=== PATIENT | female | born 1985 | race Caucasian/White ===

== ENCOUNTER 2017-12-16 00:24 | Outpatient (CLI) | payer OTHER, SELFPAY ==
--- NOTE | 2017-12-16 15:32 | DI.US_ITS ---
Many abnormalities cannot be diagnosed. A normal exam does not exclude a congenital anomaly. Radiology No. LMP: Exam Date: 12/16/17 [facility] wks days on EDC ([facility]) 05/09/18 Confirmed: HISTORY: SURVEY, Z34.90 ---- PREDICTED GESTATIONAL AGE NUMBER 18.0 weeks with a range of 17.0 week to 19.0 weeks. 1 Determined by___1STUS___LMP_X__HISTORY Info. pertaining to fetus # PLACENTA PRESENTATION Grade I Cephalic___ Anterior___Posterior___ Breech____ Right Left Transverse(head right___ Fundal___Low-lying___Previa___ Transverse(head left___ Varying___X___ BIOMETRY AMNIOTIC FLUID BPD: 46 mm 19.5 weeks Normal HC: 171 mm 19.5 weeks AC: 1.36 mm 19.0 weeks FL: 30 mm 19.2 weeks AMNIOTIC FLUID INDEX >26 WK CRL: mm weeks Cisterna Magna: 4 mm CI: 76 RUQ: LUQ Cerebellum: 1.9 cm EFW: 279 grams Percentile RLQ: LLQ Total: cms Composite AGE= 19.3 wks EDC by US 05/09/18 BIOPHYSICAL PROFILE ANATOMY IDENTIFIED SCORE 0/2 Heart: 4-Chamber__X_Rate:BPM__145___ LVOT: X__ RVOT:___X Amniotic Fluid(>2cms)____ Stomach:___X____ Kidneys:____X___ Respirations (>30 secs) Bladder:____X____ Post. Fossa:___X Body Flex/Extension 3 vessel cord:____X___Ventricles: X cord insertion:____X_ Lips:___X_ Extremity Flex/Extension spinal morphology:__X Nose:X Total Score= Palate:___X____ NS=not seen OB ultrasound was performed utilizing second trimester protocol. biometry is consistent with a gestational age of 19 weeks 3 days and an EDC of . Placenta is anterior and there is no evidence of a placenta previa. There is a normal quantity of amniotic fluid. anomaly screen is within normal limits as per the attached worksheet.
[2017-12-16 18:53] LABS: Vitamin B12 172 pg/mL (193-986)
== END 2017-12-16 00:44 ==
PROVIDERS: Advanced Practice Midwife; PCP General Practice; Visit Provider Advanced Practice Midwife
DX: Z34.82 Encounter for supervision of other normal pregnancy, second trimester (principal); O99.280 Endocrine, nutritional and metabolic diseases complicating pregnancy, unspecified trimester
CPT/HCPCS: 36415; 76805; 82607; 84443

== ENCOUNTER 2017-12-18 05:43 | Outpatient (CLI) | payer OTHER, SELFPAY ==
--- NOTE | 2017-12-18 14:16 | DI.US_ITS ---
SYMPTOMS/DIAGNOSIS: F/U 12/16/17 US, VIEW PALATE OB ULTRASOUND: Many abnormalities cannot be diagnosed. A normal exam does not exclude a congenital anomaly. Radiology No. [id number] LMP: Exam Date: 12/18/17 [facility] wks days on EDC ([facility]) Confirmed: HISTORY: ---- PREDICTED GESTATIONAL AGE NUMBER 18+3 weeks with a range of 17+3 weeks to 19+3 weeks. 1 Determined by_X__1ST US___LMP___HISTORY PLACENTA PRESENTATION Grade Cephalic___ Anterior___Posterior___ Breech_X___ Right Left Transverse(head right___ Fundal___Low-lying___Previa___ Transverse(head left___ Varying BIOMETRY AMNIOTIC FLUID BPD: mm weeks Normal HC: mm weeks Oligo Polyhydramnios AC: mm weeks FL: mm weeks AMNIOTIC FLUID INDEX >26 WK CRL: mm weeks Cisterna Magna: mm CI: RUQ: LUQ Cerebellum: cm EFW: grams Percentile RLQ: LLQ Total: cms Composite AGE= wks EDC by US BIOPHYSICAL PROFILE ANATOMY IDENTIFIED SCORE 0/2 Heart: 4-Chamber___Rate:BPM LVOT: RVOT: Amniotic Fluid(>2cms)____ Stomach: Kidneys: Respirations (>30 secs) Bladder: Post. Fossa: Body Flex/Extension 3 vessel cord: Ventricles: cord insertion: Lips:__X__ Extremity Flex/Extension spinal morphology: Nose:__X___ Total Score= Palate:___X____ Face__X___ NS=not seen The follow-up examination today reveals no abnormality involving the lips, or nose or palate. The face appears normal.
== END 2017-12-18 06:03 ==
PROVIDERS: PCP General Practice; Visit Provider Advanced Practice Midwife
DX: Z34.92 Encounter for supervision of normal pregnancy, unspecified, second trimester (principal); Z36.2 Encounter for other antenatal screening follow-up
CPT/HCPCS: 76815

== ENCOUNTER 2018-02-23 14:08 | Outpatient (CLI) | payer OTHER, SELFPAY ==
[2018-02-23 15:06] LABS: Glucose,1 Hr (Glucola) 130 mg/dL (80-140)
== END 2018-02-23 14:28 ==
PROVIDERS: Obstetrics & Gynecology; PCP General Practice; Visit Provider Obstetrics & Gynecology Gynecology
DX: Z34.93 Encounter for supervision of normal pregnancy, unspecified, third trimester (principal)
CPT/HCPCS: 36415; 82950

== ENCOUNTER 2018-04-03 11:48 | Outpatient (CLI) | payer OTHER, SELFPAY ==
[2018-04-03 13:52] LABS: Vitamin B12 631 pg/mL (193-986)
== END 2018-04-03 12:08 ==
PROVIDERS: Advanced Practice Midwife; PCP General Practice; Visit Provider Obstetrics & Gynecology
DX: Z34.93 Encounter for supervision of normal pregnancy, unspecified, third trimester (principal)
CPT/HCPCS: 36415; 82607

== ENCOUNTER 2018-04-21 23:47 | Observation (INO) | payer OTHER, SELFPAY | END 2018-04-22 00:35 | disposition home or self-care (01) | LOC: OBS 23:55 | PROVIDERS: Admitting Provider Obstetrics & Gynecology; PCP General Practice; Visit Provider Obstetrics & Gynecology | DX: O60.03 Preterm labor without delivery, third trimester (principal); Z3A.36 36 weeks gestation of pregnancy | CPT/HCPCS: G0378 ==

== ENCOUNTER 2018-04-24 00:43 | Outpatient (CLI) | payer OTHER, SELFPAY ==
--- NOTE | 2018-04-24 09:30 | DI.US_ITS ---
SYMPTOMS/DIAGNOSIS: ESTIMATED WEIGHT, 34.90, SUPERVISION OF OBSTETRICAL ULTRASOUND: Many abnormalities cannot be diagnosed. A normal exam does not exclude a congenital anomaly. Radiology No. [id number] LMP: Exam Date: 04/24/18 [facility] wks days on EDC ([facility]) 05/09/18 Confirmed: HISTORY: PREDICTED GESTATIONAL AGE NUMBER 37+6 weeks with a range of 36+6 weeks to 38+6 weeks. 1 Determined by___1STUS___LMP___HISTORY PLACENTA PRESENTATION Grade I-II Cephalic_X__ Anterior_X__Posterior___ Breech____ Right Left___X____ Transverse(head right___ Fundal_X__Low-lying___Previa___ Transverse(head left___ Varying BIOMETRY AMNIOTIC FLUID BPD: 94 mm 38+2 weeks Normal HC: 348 mm 40+3 weeks AC: 345 mm 38+3 weeks FL: 75 mm 38+1 weeks AMNIOTIC FLUID INDEX >26 WK CRL: mm weeks Cisterna Magna: mm CI: 80.2 RUQ: LUQ Cerebellum: cm EFW: 3533 grams Percentile: 79th RLQ: LLQ Total: cms Composite AGE= 38+6 wks EDC by US: 05/02/18 BIOPHYSICAL PROFILE ANATOMY IDENTIFIED SCORE 0/2 Heart: 4-Chamber_X__Rate:BPM 139 LVOT: RVOT: Amniotic Fluid(>2cms)____ Stomach:___X____ Kidneys: Respirations (>30 secs) Bladder:____X____ Post. Fossa: Body Flex/Extension 3-vessel cord:__X Ventricles: Cord insertion: Lips:_X___ Extremity Flex/Extension Spinal morphology: Nose:__X__ Total Score= Palate: NS=not seen COMMENTS: Routine examination was performed. There is a single living intrauterine gestation. Estimated sonographic age is 38 weeks 6 days. The fetus is in the cephalic presentation. heart rate is 139 beats per minute. A complete anatomic evaluation was not performed at this time. The estimated weight is 3533 g, which is the 79th percentile. The amniotic fluid index is 11.9 cm. Visually, amniotic fluid appears within normal limits. The placenta is anterior without evidence of previa. IMPRESSION: Single living intrauterine gestation. Estimated sonographic age is 38 weeks 6 days.
== END 2018-04-24 01:03 ==
PROVIDERS: PCP General Practice; Visit Provider Obstetrics & Gynecology
DX: Z34.93 Encounter for supervision of normal pregnancy, unspecified, third trimester (principal); Z36.2 Encounter for other antenatal screening follow-up
CPT/HCPCS: 76816; 87081

== ENCOUNTER 2018-04-30 06:58 | Inpatient (IN) | payer OTHER, SELFPAY ==
--- NOTE | 2018-04-30 16:17 | HPE_ITS ---
Assessment and Plan (1) GDM (gestational diabetes mellitus), class A1: Current visit: Yes Status: Acute EFW 8.5 # discussed risk shoulder dystocia (2) : Current visit: No Status: Acute 32 37.2 active labor GBS negative GDM diet controlled EFW 8.5# Shoulder dystocia risks discussed with patient ok for epidural (3) Hypothyroid: Current visit: No Status: None patient on meds History of Present Illness Chief Complaint: 37.2 active labor Review of Systems Review of Systems All systems reviewed & are unremarkable except as noted in HPI and below PFSH Medical History GDM (gestational diabetes mellitus), class A1 (Acute) (Acute) Hypothyroid Complete miscarriage (Resolved) Surgical History History of D&C (Resolved) Family History Mother Thyroid disorder Father Myocardial infarction Grandfather Myocardial infarction Social History current occupation: PA in the ER at [employer] Smoking/Tobacco Use Status: Never Meds Home Medications Medication Instructions Recorded Confirmed Type PNV cmb#95-ferrous fumarate-FA 1 ea PO 05/22/17 04/24/18 History [ Vitamin Tablet] levothyroxine 125 mcg tablet 125 mcg PO DAILY #30 tab 12/18/17 04/24/18 Rx cyanocobalamin (vit B-12) 2,500 2,500 mcg SL DAILY 01/26/18 04/24/18 History mcg sublingual tablet lancets 28 gauge #25 each 04/10/18 04/24/18 Rx Allergies Allergy/AdvReac Type Severity Reaction Status Date / Time latex Allergy Intermediate Hives Unverified 04/30/18 15:49 Exam Narrative Exam Narrative: uncomfortable with contractions Resp Effort & Inspection: normal respiratory effort Auscultation: clear to auscultation bilaterally Cardio Rate: regular rate Rhythm: regular rhythm Heart Sounds: S1 normal, S2 normal and no murmurs OB/External & Speculum: external exam normal Manual OB Exam: dilated 6, effaced fully and station (vtx by US) high
[2018-04-30 16:37] LABS: HCT 37.2 % (36.0-46.0); HGB 12.6 g/dL (12.0-15.5); Mean Corp. HGB Concentration 33.9 g/dL (32.0-36.0); Mean Corpuscular Hemoglobin 30.3 pg (27.0-33.0); Mean Corpuscular Volume 89.4 fL (80-95); Mean Platelet Volume 10.8 fL (8.0-11.0); Platelet Count 157 x1000/uL (130-400); RBC 4.16 m/cumm (4.00-5.20); RBC Distribution Width 14.2 % (11.7-14.6); White Blood Cell Count 14.38 k/cumm (4.4-10.8)
[2018-04-30] MEDS: Lactated Ringers 200 ML 400 ML IV (17:15)
[2018-04-30] MEDS: Bacitracin 1 PACKET (19:07)
[2018-04-30] MEDS: Hamamelis Leaf/Glycerin 100 EACH BOX PR (21:18)
[2018-04-30] MEDS: Ibuprofen 600 MG TAB PO (21:18)
[2018-04-30] MEDS: Acetaminophen 325 MG TAB 650 MG PO (21:18)
[2018-04-30] MEDS: Lidocaine 1% Pres-Free 5 ML VIAL (21:36)
[2018-05-01] MEDS: Acetaminophen 325 MG TAB 650 MG PO ×3 (01:40→20:05)
[2018-05-01] MEDS: Ibuprofen 600 MG TAB PO ×3 (04:25→20:04)
[2018-05-01 07:30] LABS: HCT 33.7 % (36.0-46.0); HGB 11.1 g/dL (12.0-15.5); Mean Corp. HGB Concentration 32.9 g/dL (32.0-36.0); Mean Corpuscular Hemoglobin 29.9 pg (27.0-33.0); Mean Corpuscular Volume 90.8 fL (80-95); Platelet Count 154 x1000/uL (130-400); RBC 3.71 m/cumm (4.00-5.20); RBC Distribution Width 14.5 % (11.7-14.6); White Blood Cell Count 13.74 k/cumm (4.4-10.8)
[2018-05-01] MEDS: Normal Saline Flush 10 ML SYR IVP (08:26)
[2018-05-01] MEDS: Docusate Sodium 100 MG CAP PO ×2 (08:27→20:34)
[2018-05-01] MEDS: Hamamelis Leaf/Glycerin 100 EACH BOX PR (12:59)
[2018-05-02] MEDS: Levothyroxine 125 MCG TAB PO (05:57)
[2018-05-02] MEDS: Ibuprofen 600 MG TAB PO (08:02)
[2018-05-02] MEDS: Acetaminophen 325 MG TAB 650 MG PO (08:03)
== END 2018-05-02 12:45 | disposition home or self-care (01) | DRG 768 ==
PROVIDERS: Admitting Provider Obstetrics & Gynecology; PCP General Practice; Visit Provider Obstetrics & Gynecology
DX: O24.420 Gestational diabetes mellitus in childbirth, diet controlled (principal); Z37.0 Single live birth; O70.20 Third degree perineal laceration during delivery, unspecified; Z3A.37 37 weeks gestation of pregnancy; O99.284 Endocrine, nutritional and metabolic diseases complicating childbirth; E03.9 Hypothyroidism, unspecified; O76 Abnormality in fetal heart rate and rhythm complicating labor and delivery
CPT/HCPCS: 36415; 85027; 86850; 86900; 86901; NC; G0378; J3490

== ENCOUNTER 2018-05-15 09:29 | Outpatient (CLI) | payer OTHER, SELFPAY | END 2018-05-15 09:49 | PROVIDERS: PCP General Practice; Visit Provider Advanced Practice Midwife | DX: Z39.1 Encounter for care and examination of lactating mother (principal) | CPT/HCPCS: E0602 ==

== ENCOUNTER 2019-01-08 08:47 | Outpatient (CLI) | payer OTHER, SELFPAY ==
[2019-01-08 10:33] LABS: TSH (W/Ref FT4) 2.14 uIU/mL (0.36-3.74)
[2019-01-08 10:48] LABS: Calculated LDL 120 mg/dL; Cholesterol 192 mg/dL (50-200); HDL Cholesterol 57 mg/dL (40-60); Triglyceride 78 mg/dL (30-150); Vitamin B12 785 pg/mL (193-986)
[2019-01-08 11:41] LABS: GTT Comment See Comments
== END 2019-01-08 09:07 ==
PROVIDERS: Obstetrics & Gynecology; Obstetrics & Gynecology Gynecology; PCP Family Medicine; Visit Provider Family Medicine
DX: E03.9 Hypothyroidism, unspecified (principal); Z13.1 Encounter for screening for diabetes mellitus; E53.9 Vitamin B deficiency, unspecified; Z82.49 Family history of ischemic heart disease and other diseases of the circulatory system
CPT/HCPCS: 36415; 80061; 82607; 82951; 84443

== ENCOUNTER 2019-07-14 15:05 | Outpatient (CLI) | payer OTHER, SELFPAY ==
[2019-07-14 16:48] LABS: HCT 40.1 % (36.0-46.0); HGB 13.3 g/dL (12.0-15.5); Mean Corp. HGB Concentration 33.2 g/dL (32.0-36.0); Mean Corpuscular Hemoglobin 29.8 pg (27.0-33.0); Mean Corpuscular Volume 89.7 fL (80-95); Mean Platelet Volume 10.2 fL (8.0-11.0); Platelet Count 281 x1000/uL (130-400); RBC 4.47 m/cumm (4.00-5.20); RBC Distribution Width 12.4 % (11.7-14.6); White Blood Cell Count 7.94 k/cumm (4.4-10.8)
[2019-07-14 17:34] LABS: Anion Gap 11.7 mmol/L (3-11); BUN 10 mg/dL (7-18); CO2 24.3 mmol/L (21.0-32.0); Chloride 103 mmol/L (98-107); Glucose 107 mg/dL (74-106); Potassium 4.1 mmol/L (3.5-5.1); Sodium 139 mmol/L (136-145)
[2019-07-14 19:03] LABS: TSH (W/Ref FT4) 0.24 uIU/mL (0.36-3.74)
[2019-07-14 19:46] LABS: FREE T4 1.27 ng/dL (0.76-1.46)
== END 2019-07-14 15:25 ==
PROVIDERS: PCP Family Medicine; Visit Provider Nurse Practitioner Family
DX: R51 Headache (principal); E03.9 Hypothyroidism, unspecified
CPT/HCPCS: 80048; 85027; 84439; 84443

== ENCOUNTER 2019-07-21 00:50 | Outpatient (CLI) | payer OTHER, SELFPAY ==
--- NOTE | 2019-07-21 | DI.MRI_ITS ---
EXAM: MR BRAIN WO CLINICAL HISTORY: HEADACHES,R51. TECHNIQUE: Multiplanar multisequence MRI of the brain was performed. CONTRAST MATERIAL: Noncontrast COMPARISON: No exams were available for comparison FINDINGS: VENTRICLES AND EXTRA AXIAL SPACES: Normal in size and morphology for the patient's age. HEMORRHAGE: None. CEREBRAL PARENCHYMA: No focus of restricted diffusion to suggest acute infarct. No space-occupying le bhavna identified. Normal montoya-white matter differentiation. MIDLINE SHIFT: None. BRAINSTEM/CEREBELLUM: Normal. VISUALIZED PARANASAL SINUSES/MASTOIDS: Clear. OTHER FINDINGS: The vascular flow voids appear intact. The orbits are unremarkable. IMPRESSION: Unremarkable MRI of the brain. DATA REPOSITORY:
== END 2019-07-21 01:10 ==
PROVIDERS: PCP Family Medicine; Visit Provider Nurse Practitioner Family
DX: R51 Headache (principal)
CPT/HCPCS: 70551

== ENCOUNTER 2020-05-08 17:42 | Outpatient (REF) | payer OTHER, SELFPAY ==
--- NOTE | 2020-05-08 15:00 | PAPFT_PTH ---
PATIENT: Keturah Tucker LOC: [facility] U#:[id number] AGE/SX: 34/F ROOM: RE05/08/[address]: DOROTA Rg : 1985 BED: DIS: 05/08/2020 SPEC #: [id number] RECD: 05/08/20 17:54 STATUS: RADHA REQ #: [id number] JOYCE: 05/08/20 15:[address]: Tabitha Gauthier DEPT: [facility] Cytology RECD BY: Laura Woods ENTERED: 05/08/20 17:54 SP TYPE: PAPFT REAL DR: Radha Dowell Tissues: 1 - CX/ENDOCX FOR PAP SMEARS Procedures: PAP THIN PREP/UVM Screening HPV DNA PROBE Comments: [id number]
== END 2020-05-08 17:43 | disposition home or self-care (01) ==
LOC: LBN 17:42
PROVIDERS: PCP Family Medicine; Visit Provider Nurse Practitioner Family
DX: Z12.4 Encounter for screening for malignant neoplasm of cervix (principal); R87.612 Low grade squamous intraepithelial lesion on cytologic smear of cervix (LGSIL); Z11.51 Encounter for screening for human papillomavirus (HPV); R87.810 Cervical high risk human papillomavirus (HPV) DNA test positive
CPT/HCPCS: 88142; 87624

== ENCOUNTER 2020-07-03 15:03 | Outpatient (REF) | payer OTHER, SELFPAY ==
--- NOTE | 2020-07-03 14:50 | ENDO_PTH ---
PATIENT: Keturah Tucker LOC: [facility] U#:[id number] AGE/SX: 34/F ROOM: RE07/03/[address]: Heather Gleason DO : 1985 BED: DIS: 07/03/2020 SPEC #: [id number] RECD: 07/03/20 17:16 STATUS: RADHA RE #: [id number] JOYCE: 07/03/20 14:[address]: Heather Gleason DEPT: Surgical Specimen RECD BY: Laura Woods ENTERED: 07/03/20 17:16 SP TYPE: Endo OTHR DR: Radha Dowell Tissues: 1 - ENDOCERVICAL BX/CURRETTE Procedures: GROSS AND MICRO LEVEL 4 Comments: [id number]
== END 2020-07-03 15:04 | disposition home or self-care (01) ==
LOC: LBN 15:03
PROVIDERS: PCP Family Medicine; Visit Provider Obstetrics & Gynecology
DX: N88.8 Other specified noninflammatory disorders of cervix uteri (principal); R87.612 Low grade squamous intraepithelial lesion on cytologic smear of cervix (LGSIL)
CPT/HCPCS: 88305

== ENCOUNTER 2020-07-08 09:59 | Emergency (ER) | payer OTHER, SELFPAY ==
[2020-07-08 10:03] VITALS: BP 139/69; PULSE 85; TEMP 36.5; O2SAT 100
--- NOTE | 2020-07-08 10:15 | DI.RAD_ITS ---
EXAM: XR CHEST 2V PA LATERAL CLINICAL HISTORY: fall from ladder TECHNIQUE: 2D digital imaging was performed. COMPARISON: No exams were available for comparison FINDINGS: MEDIASTINUM: Normal. HEART: Normal. PULMONARY VASCULATURE: Normal. LUNGS: Clear. PLEURAL SPACE: No pleural effusion or pneumothorax. BONE:Within normal limits for the patient's age. OTHER FINDINGS:Normal. IMPRESSION: No acute pulmonary findings. DATA REPOSITORY: RADIATION DOSE DELIVERED:
--- NOTE | 2020-07-08 10:15 | DI.RAD_ITS ---
EXAM: CT LOWER EXTREMITY RT WO and XR knee RT four view CLINICAL HISTORY: open patellar fx. TECHNIQUE: Imaging Protocol: Axial computed tomography images with coronal and sagittal reformatted images were created and reviewed. COMPARISON: No previous for comparison. FINDINGS: X-ray right knee: There is fragmentation of the inferior pole of the right patella suspicious for an acute fracture. T here is associated soft tissue swelling and thickening of the patellar ligament.There may be a tiny j oint effusion.The bones are otherwise well maintained. The soft tissues are otherwise unremarkable. CT scan of the right knee: Bones: There is fragmentation of the inferior pole of the patella. There does appear to be associate d thickening of the patellar ligament and swelling of the prepatellar soft tissues. A comminuted acu te fracture of the inferior patella should be considered. Bony alignment is satisfactory. There is a small joint effusion. Soft Tissues: There is a laceration of the lateral soft tissues superficial to the lateral retinacul um. Subcutaneous air is seen in the soft tissues. IMPRESSION: 1. Fragmentation seen in the inferior patella. With the associated soft tissue swelling in the regio n, an acute fracture should be considered. Please correlate with the patient's site of pain. An MRI should be considered for further evaluation. 2. Soft tissue swelling, subcutaneous gas and laceration over the anterolateral knee. RADIATION DOSE DELIVERED: 173.57mGy.cm Total DLP 173.57mGy.cm Total DLP DATA REPOSITORY: All CT scans at this facility are submitted to the National Radiology Data Registry (NRDR) Dose Index Registry (DIR) with the [employer] ([employer]). RADIATION OPTIMIZATION: All CT scans at this facility use at least one of these dose optimization te chniques: automated exposure control; mA and/or kV adjustment per patient size (includes targeted exa ms where dose is matched to clinical indication); or iterative reconstruction.
--- NOTE | 2020-07-08 10:33 | ED.GENADUL_ITS ---
Discharge Plan Disposition Patient Disposition: HOME Condition: Stable Discharge Details Clinical Impression: Knee laceration, Patellar fracture Primary Care Provider: Radha Dowell ED Provider: Maximus Aburto Home Meds and New Rx's Prescriptions: New cephalexin 500 mg capsule 500 mg PO QID 2 Days Qty: 8 RF: 0 Continued levothyroxine 125 mcg tablet 112 mcg PO DAILY RF: 0 ibuprofen 800 mg tablet 800 mg PO TID PRN (Reason: pain) Qty: 30 RF: 2 naproxen sodium [Aleve] 220 mg Tablet 440 mg PO BID PRNRF: 0 acetaminophen 500 mg Capsule 1,000 mg PO Q6H PRNRF: 0 Discharge Instructions Instructions: Laceration (ED), Patellar Fracture (ED), Knee Immobilizer (ED) Additional Instructions: Keflex as directed. [id number] Tylenol and/or Motrin as directed for discomfort. Rest, elevate, cool compresses every 2 hours for 20 minutes. Keep the wound clean and dry, change antibiotic dressing daily. Wear long leg immobilizer, weight-bear as tolerated. Please watch for new or worsening sympt oms and return to the ER for any concerns. Sutures should come out in approximately 14 days given it is over an area of high tension. You may return to the ER or follow-up with your primary care provider for this. I have also given you the name and number of Dr. Gleason, orthopedics, please contact his office on Friday to set up outpatient follow-up appointment. Referrals: Lucio Gleason MD [ [facility] STAFF PHYSICIAN] - Discharge Data Discharge Date/Time-TO BE ENTERED AT DEPARTURE: 07/08/20 13:40 Medical Decision Making <PRIYA Billings - Last Filed: 07/09/20 15:17> This is a 34-year-old female, past medical history of hypothyroidism, presented to the ER status post 15 foot fall from ladder sustaining a right knee injury. Patient denies striking her head, LOC, headache or neck pain. Tetanus status is up-to-date. Given the mechanism of injury, obvious distracting injury of the right lower extremity, I have recommended obtaining IV access, CT imaging of he ad, C-spine, abdomen, chest, pelvis, laboratory values, and an x-ray of the right lower extremity. Patient initially declined any CT imaging for IV access. She does understand the risks of not obtaining these images such as intracranial hemorrhage, cervical spine fracture, pneumothorax, pulmonary contusion, intra-abdominal injury and/or hemorrhage. Patient understands that this may result in worsening of her situation or . Patient does not want any pain medication at this time. She is agreeable to a chest x-ray, right knee x-ray and reassessment. Dr. Samuel did perform an E FAST, please see his note. Right knee x-ray read by me as soft tissue injury, inferior patella fracture. G iven the complexity of the laceration, and concerned about the possibility of an open fracture versus infiltration into the joint space. Given this I will give 2 g IV Ancef, she is agreeable to IV access and now laboratory values. I have placed a call to Dr. Gleason and in the meantime and ordering a CT of her right knee. Chest x-ray read by me and reviewed by radiology as negative. Right knee CT irregularity of the inferior patella that appears chronic, no acute fracture, as read by radiology. Given the point tenderness over the inferior patella, I do believe this is likely acute. No indication that there is intraarticular association to the laceration. Dr. Gleason evaluated the patient personally, please see his note. He does not believe that this is an open fracture. Recommends 2-day oral Keflex prescription. CT discussed with Dr. Gleason as well. He agrees that he belie ves there is a acute patella fracture. Recommend long leg immobilizer and weight-bear as tolerated. Recommend loose approximation of the laceration. He will be happy to follow the patient as an outpatient in his office. Laboratory values do not reveal any obvious emergent process. ER course, work-up, consultations and disposition all discussed with patient. Tolerated laceration repair without difficulty. She is ambulatory using a long- leg immobilizer. Declines prescription for any pain medications. She is agreeable to take Keflex for the next 2 days. Patient given standard discharge and return precautions. Patient has no additional questions or concerns and is comfortable with this plan. Medical Records Medical records reviewed: Yes I reviewed the patient's medical records. Imaging Data Radiologic Study: Attestation: I personally reviewed and interpreted this imaging study as follows: Imaging: X-Ray Radiologist's impression: Chest x-ray negative per radiology Radiologic Study #2: Attestation: I personally reviewed and interpreted this imaging study as follows: Imaging: X-Ray Radiologist's impression: Right knee possible fracture anterior patella. Consider CT scan of the knee Radiologic Study #3: Attestation: I personally reviewed and interpreted this imaging study as follows: Imaging: CT Scan Radiologist's impression: Right knee CT irregularity of the inferior patella that appears chronic, no acute fracture. Anterior prepatellar soft tissue swelling and laceration. Lab Data Lab results reviewed: Yes I reviewed the patient's lab results. Labs: Laboratory Tests Range/Units 07/08/20 07/08/20 07/08/20 11:12 11:55 11:55 WBC (4.4-10.8) 10^3/uL 9.66 RBC (3.93-5.22) 10^6/uL 4.65 Hgb (11.2-15.7) g/dL 11.9 Hct (36.0-46.0) % 38.5 MCV (80-95) fL 82.8 MCH (27.0-33.0) pg 25.6 L MCHC (32.0-36.0) % 30.9 L RDW (11.7-14.6) % 13.7 Plt Count (130-400) 10^3/uL 257 MPV (8.0-11.0) fL 10.2 Immature Gran % 0.2 Neutrophils % 77.2 Lymphocytes % 15.3 Monocytes % 6.6 Eosinophils % 0.3 Basophils % 0.4 Nucleated RBC % % 0 Absolute Neutrophils (1.2-6.7) 10^3/uL 7.45 H Absolute Lymphocytes (1.2-3.4) 10^3/uL 1.48 Absolute Monocytes (0.1-0.8) 10^3/uL 0.64 Absolute Eosinophils (0.0-0.7) 10^3/uL 0.03 Absolute Basophils (0.0-0.2) 10^3/uL 0.04 Sodium (136-145) mmol/L 137 Potassium (3.5-5.1) mmol/L 3.7 Chloride (98-107) mmol/L 102 Carbon Dioxide (21.0-32.0) mmol/L 23.5 Anion Gap (3-11) mmol/L 11.5 H BUN (7-18) mg/dL 10 Creatinine (0.55-1.02) mg/dL 0.9 Estimated GFR/1.73 m2 (mL/min/1.73m2) >= 60.00 Glucose (74-106) mg/dL 93 Calcium (8.5-10.1) mg/dL 9.1 Total Bilirubin (0.2-1.0) mg/dL 0.3 AST (15-37) U/L 27 ALT (14-59) U/L 28 Alkaline Phosphatase (46-116) U/L 53 Total Protein (6.4-8.2) g/dL 8.2 Albumin (3.4-5.0) g/dL 4.5 Lipase (73-393) U/L 187 TSH (0.36-3.74) uIU/mL Urine Color Cancelled Urine Clarity Cancelled Urine pH Cancelled Ur Specific [place] Cancelled Urine Protein Cancelled Urine Ketones Cancelled Urine Blood Cancelled Urine Nitrite Cancelled Urine Bilirubin Cancelled Urine Urobilinogen Cancelled Ur Leukocyte Esterase Cancelled Urine Glucose Cancelled COVID-19 Source SARS-CoV-2 (PCR) (Negative) Range/Units 07/08/20 07/08/20 11:55 12:15 WBC (4.4-10.8) 10^3/uL RBC (3.93-5.22) 10^6/uL Hgb (11.2-15.7) g/dL Hct (36.0-46.0) % MCV (80-95) fL MCH (27.0-33.0) pg MCHC (32.0-36.0) % RDW (11.7-14.6) % Plt Count (130-400) 10^3/uL MPV (8.0-11.0) fL Immature Gran % Neutrophils % Lymphocytes % Monocytes % Eosinophils % Basophils % Nucleated RBC % % Absolute Neutrophils (1.2-6.7) 10^3/uL Absolute Lymphocytes (1.2-3.4) 10^3/uL Absolute Monocytes (0.1-0.8) 10^3/uL Absolute Eosinophils (0.0-0.7) 10^3/uL Absolute Basophils (0.0-0.2) 10^3/uL Sodium (136-145) mmol/L Potassium (3.5-5.1) mmol/L Chloride (98-107) mmol/L Carbon Dioxide (21.0-32.0) mmol/L Anion Gap (3-11) mmol/L BUN (7-18) mg/dL Creatinine (0.55-1.02) mg/dL Estimated GFR/1.73 m2 (mL/min/1.73m2) Glucose (74-106) mg/dL Calcium (8.5-10.1) mg/dL Total Bilirubin (0.2-1.0) mg/dL AST (15-37) U/L ALT (14-59) U/L Alkaline Phosphatase (46-116) U/L Total Protein (6.4-8.2) g/dL Albumin (3.4-5.0) g/dL Lipase (73-393) U/L TSH (0.36-3.74) uIU/mL 2.16 Urine Color Urine Clarity Urine pH Ur Specific [place] Urine Protein Urine Ketones Urine Blood Urine Nitrite Urine Bilirubin Urine Urobilinogen Ur Leukocyte Esterase Urine Glucose COVID-19 Source Nasal/nares SARS-CoV-2 (PCR) (Negative) Negative HPI <PRIYA Billings - Last Filed: 07/09/20 15:17> General Mode of arrival: ambulatory . Date/Time Provider Initiated Documentation: 07/08/20 10:07 . Limitations to Documentation: no limitations . Information obtained by: patient . HPI Narrative: This is a 34-year-old female, past medical history of hypothyroidism, presenting to the ER for evaluation of a right lower leg injury. Patient was cleaning windows on a ladder, approximately 15 feet off the ground, when the ladder slipped from underneath her, she fell down to the ground landing upright on the ladder, the ladder rung broke and punctured her right knee. She reports that her tetanus status is up-to-date. She denies striking her head, headache, or neck pain. Patient reports multiple abrasions and contusions to her upper and lower extremities. She does report that she has right sided chest wall pain but denies any substernal chest pain, shortness of breath, abdominal pain, nausea, vomiting, incontinence, numbness, tingling, weakness. She reports that the pain in her right knee is moderate, she is able to bear weight but the pain does get worse with movement or bearing weight. Related Data Home Medications Medication Instructions Recorded Confirmed ibuprofen 800 mg tablet 800 mg PO TID PRN #30 tab 05/02/18 07/08/20 levothyroxine 125 mcg tablet 112 mcg PO DAILY tab 05/08/20 07/08/20 acetaminophen 1,000 mg PO Q6H PRN 07/08/20 07/08/20 cephalexin 500 mg PO QID 2 Days #8 cap 07/08/20 naproxen sodium [Aleve] 440 mg PO BID PRN 07/08/20 07/08/20 Previous Rx's Medication Instructions Recorded ibuprofen 800 mg tablet 800 mg PO TID PRN #30 tab 05/02/18 cephalexin 500 mg PO QID 2 Days #8 cap 07/08/20 Allergies Allergy/AdvReac Type Severity Reaction Status Date / Time latex Allergy Intermediate Hives Verified 07/08/20 10:07 General Stated Complaint: Trauma ANDREW: 3 Review of Systems <PRIYA Billings - Last Filed: 07/09/20 15:17> Constitutional Constitutional: Denies headache(s) Eyes Eyes: Denies change in vision ENT Ears, Nose, Mouth, and Throat: Denies headache(s) and Denies neck pain Cardiovascular Cardiovascular: Denies chest pain and Denies dyspnea Respiratory Respiratory: Denies dyspnea Gastrointestinal Gastrointestinal: Denies abdominal pain, Denies nausea and Denies vomiting Musculoskeletal Musculoskeletal: Denies back pain, Denies neck pain, Denies numbness, Reports stiffness and Denies tingling Neurologic Neurologic: Denies headache(s), Denies numbness and Denies tingling PFSH <PRIYA Billings - Last Filed: 07/09/20 15:17> Medical History Complete miscarriage GDM (gestational diabetes mellitus), class A1 Hypothyroid Hypothyroid LGSIL on Pap smear of cervix Positive high risk HPV Yeast dermatitis Surgical History History of D&C 05/2017 for incomplete Family History Mother Thyroid disorder Father Myocardial infarction Grandfather Myocardial infarction Social History Smoking/Tobacco Use Status: Never Smoking risk assessment performed?: Yes Household members: spouse, children and other Details: Shannon Noguera Number of Children: 2 current occupation: PA in the ER at [employer] Do you feel safe at home: Yes Do you feel safe in your relationship?: Yes Additional Social history: Kwadwo Noguera, 2019 Jose Maria, History History 3 Para Hx # Term Pregnancies 1 Multiple births Hx # Pregnancies Ectopic pregnancies AB induced Hx Number of Living Children AB spontaneous Past Pregnancies Del. Date GA/Weeks # Outcome Route Wgt Sex Labor Lgth Anesthes ia Location Prov Complic Unknown 04/30/18 37 No Successful vaginal 3657.088 g Male 17hrs 10 min lisette onal Claire dian Delivery Date: son: Jose Maria. Rosa Maria Vargas Delivery Date: 04/30/18 No notes to display Exam <PRIYA Billings - Last Filed: 07/09/20 15:17> Const General: cooperative, healthy appearing, comfortable and no acute distress Orientation: alert, awake and oriented x3 HENMT Head: normal to inspection, normocephalic and atraumatic Ears: external ears normal, TM's normal bilaterally and EAC's normal Face and sinus: normal facial exam Mouth: moist mucous membranes Eyes General: appearance normal, both eyes and all related structures Alignment and Position: alignment normal Periorbital: periorbital findings normal Eyelids: eyelids normal Conjunctivae: conjunctivae normal Sclera: sclerae normal Cornea: corneas normal Pupils: PERRL EOM: EOM intact bilaterally Direct ophthalmoscopy: normal light reflex Neck Neck: normal visual inspection, full ROM, trachea midline, supple and nontender Chest Chest: normal inspection of the chest Chest/axillae images: 1. Diffuse mild discomfort. Skin is intact. There is no crepitus, deformity, erythema or ecchymosis. Resp Effort & Inspection: normal respiratory effort and able to speak in complete sentences Auscultation: clear to auscultation bilaterally Cardio Rate: regular rate Rhythm: regular rhythm GI Inspection: normal to inspection Palpation: soft and nontender Back/Spine/Pelvis Back: no CVA tenderness, No ecchymosis and No back tenderness Skin General skin exam: no rashes or lesions noted Neuro General: patient alert, patient awake, patient oriented x3, moves all extremities and no focal motor deficits Cognition: normal cognition Speech: speech normal Gait: antalgic Motor: muscle tone normal throughout Sensory Exam: no sensory deficits noted Extrem General: full ROM and capillary refill normal Knee images: 1. Irregular 5-1/2 cm laceration. No active bleeding. Full range of motion of her knee. Neuro, vascular, tendon intact. No obvious foreign body. There is decreased sensation along the superior anterior aspect of the laceration. There is point tenderness and ecchymosis over the inferior patella. Other: Patient has multiple contusions and abrasions to bilateral upper and lower extremities. Psych Appearance: grossly normal Mental Status: mental status grossly normal Course <PRIYA Billings - Last Filed: 07/09/20 15:17> Vital Signs Vital signs: Vital Signs Temperature 36.5 C 07/08/20 10:03 Pulse 85 07/08/20 10:03 Blood Pressure 139/69 07/08/20 10:03 Pulse Oximetry 100 07/08/20 10:03 Temperature 36.5 C 07/08/20 10:03 Temperature Source Temporal Artery Scan 07/08/20 10:03 Pulse 85 07/08/20 10:03 Respiratory Effort Non-Labored 07/08/20 10:05 Blood Pressure 139/69 07/08/20 10:03 Blood Pressure Position Sitting 07/08/20 10:03 Pulse Oximetry 100 07/08/20 10:03 Oxygen Delivery Method Room Air 07/08/20 10:03 Oxygen Flow Rate 0 07/08/20 10:03 Pain Level 3 07/08/20 10:03 Procedures <PRIYA Billings - Last Filed: 07/09/20 15:17> Laceration Laceration 1: Site: lower extremity Side (If applicable): right Size (cm): 5.5 Description: irregular and clean Depth: simple, single layer, involves muscle layer and involves tendon Local Anesthetic: Lidocaine 1%, Bupivicaine 0.5%, with Epi and other anesthetic ([id number] mixture) Amount of anesthesia used (mL): 12 Pre-repair: wound explored, irrigated extensively and deep structures intact Skin layer closed with: nylon Size (cm): 4-0 and other (Loose approximation) Number of sutures: 5 Technique: simple, interrupted Subcutaneous layer closed with: vicryl Size: 3-0 Number of sutures: 4 Technique: simple, interrupted <Lennox Samuel DO - Last Filed: 07/08/20 10:38> Other Description: E-FAST Exam type: Diagnostic Indication for exam: Blunt trauma Views obtained: hepatorenal, perisplenic, suprapubic, pericardial, R lung, L lung Findings and interpretations: all views were adequate. No abdominal free fluid or pericardial fluid seen. Normal lung sliding, normal sea shore sign, no bar code sign indicating no pneumothorax. The patient tolerated the procedure well and there were no complications.
--- NOTE | 2020-07-08 11:55 | DI.VRAD_ITS ---
PROCEDURE INFORMATION: Exam: XR Chest Exam date and time: 07/08/2020 10:24 AM Age: 34 years old Clinical indication: Injury or trauma; Laceration; Not specified; Patient HX: S/P fall from ladder. TECHNIQUE: Imaging protocol: XR of the chest. Views: 2 views. COMPARISON: No relevant prior studies available. FINDINGS: Lungs: Unremarkable. No consolidation. Pleural spaces: Unremarkable. No pleural effusion. No pneumothorax. Heart/Mediastinum: Unremarkable. No cardiomegaly. Bones/joints: Unremarkable. IMPRESSION: No acute findings. Dictated and Authenticated by: Gualberto Pop MD. Ordering:ROBERTO Stroud MD
--- NOTE | 2020-07-08 11:56 | DI.VRAD_ITS ---
PROCEDURE INFORMATION: Exam: XR Right Knee Exam date and time: 07/08/2020 10:24 AM Age: 34 years old Clinical indication: Injury or trauma; Laceration; Patella or knee; Right; Foreign body involvement not specified; Patient HX: S/P fall 15 feet from ladder. Lacerstion lateral knee. Patellar pain TECHNIQUE: Imaging protocol: XR Right knee. Views: 4 or more views. COMPARISON: No relevant prior studies available. FINDINGS: Bones/joints: Possible fracture inferior patella versus unusual bipartite patella. Consider CT scan of the knee. Soft tissues: Anterior soft tissue swelling. IMPRESSION: Possible fracture inferior patella. Consider CT scan of the knee. Dictated and Authenticated by: Gualberto Pop MD. Ordering:ROBERTO Stroud MD
[2020-07-08 12:12] LABS: Abs Immature Grans 0.02 10^3/uL (0.0-0.06); Absolute Basophil Count 0.04 10^3/uL (0.0-0.2); Absolute Eosinophil Count 0.03 10^3/uL (0.0-0.7); Absolute Lymphocyte Count 1.48 10^3/uL (1.2-3.4); Absolute Monocyte Count 0.64 10^3/uL (0.1-0.8); Absolute Neutrophil Count 7.45 10^3/uL (1.2-6.7); Basophils % 0.4; Eosinophils % 0.3; HCT 38.5 % (36.0-46.0); HGB 11.9 g/dL (11.2-15.7); Immature Grans % 0.2; Lymphocytes % 15.3; MCH 25.6 pg (27.0-33.0); MCHC 30.9 % (32.0-36.0); MCV 82.8 fL (80-95); MPV 10.2 fL (8.0-11.0); Monocytes % 6.6; Neutrophils % 77.2; Nucleated RBC 0 %; Platelet Count 257 10^3/uL (130-400); RBC 4.65 10^6/uL (3.93-5.22); RDW 13.7 % (11.7-14.6); RDW-SD 41.1 fL; WBC 9.66 10^3/uL (4.4-10.8)
[2020-07-08] MEDS: ceFAZolin 2 GM/50 ML BAG IV (12:23)
[2020-07-08 12:25] LABS: ALT 28 U/L (14-59); AST 27 U/L (15-37); Albumin 4.5 g/dL (3.4-5.0); Alkaline Phosphatase 53 U/L (46-116); Anion Gap 11.5 mmol/L (3-11); BUN 10 mg/dL (7-18); Bilirubin, Total 0.3 mg/dL (0.2-1.0); CO2 23.5 mmol/L (21.0-32.0); CREATININE 0.9 mg/dL (0.55-1.02); Calcium 9.1 mg/dL (8.5-10.1); Chloride 102 mmol/L (98-107); Glucose 93 mg/dL (74-106); Lipase 187 U/L (73-393); Potassium 3.7 mmol/L (3.5-5.1); Sodium 137 mmol/L (136-145); Total Protein 8.2 g/dL (6.4-8.2)
[2020-07-08 12:25] LABS: Source Nasal/Nares
--- NOTE | 2020-07-08 12:38 | OCONE_ITS ---
Date of service: 07/08/20 Time of Service: 12:40 History of Present Illness History of Present Illness Chief Complaint: Right knee laceration and knee pain Narrative: Keturah is a 34-year-old active female who was up on a ladder cleaning a window. The ladder feet slid out away from the wall sliding down the wall. She was holding onto the ladder as it fell down and she landed on the ladder in a prone position on the floor. There was a rung which had a ridge against which her right knee hit and the rung broke which is what cut the lateral aspect of her right knee. She also had pain and swelling to the anterior aspect of the right knee. She was able to ambulate although felt most comfortable doing so with the leg completely straight. She denied any head trauma. No loss of consciousness. She denies any pain in the lower leg, ankle, foot, or hip region. She denies any premorbid right knee pain. Consults Consult date: 07/08/20 Requesting physician: Maximus Aburto Consult Reason Right knee laceration with patella fracture Assessment and Plan Assessment and plan (1) Closed comminuted fracture of right patella: Status: Acute Qualifiers: Encounter type: initial encounter Fracture alignment: nondisplaced Qualified Code(s): S82.044A - Nondisplaced comminuted fracture of right patella, initial encounter for closed fracture (2) Laceration of knee, right: Status: Acute Assessment and plan: Keturah is a 34-year-old who a fall with a ladder suffering a complex laceration of the right knee down to the knee capsule. Fortunately, the CT scan does not demonstrate any air within the joint which was suggest a traumatic arthrotomy. Likewise, the patella fracture does not communicate with the laceration and therefore can be treated in a closed fashion. The inferior pole patella is comminuted but there is no significant displacement. She is able straight leg raise even get some slight resistance and therefore I think we can treat this conservatively with a knee immobilizer. Those small pieces should consolidate and heal as long as we avoid any deep flexion at this time. She may be weightbearing as tolerated with a knee immobilizer. I would not flex the knee past 30 degrees. The laceration may be irrigated and closed here in the emergency department. There may be some scar issues given the injury to the skin but I expect that it will without an issue. I would recommend 2 days of antibiotics just given the complexity of the laceration and its proximity to the joint and the patella. However, without any direct communication to the joint or to the fracture this does not necessitate operative intervention. I discussed the findings and the plan with Maximus Aburto in the emergency department. I also reviewed in detail with bedside who agrees with the plan outlined. We will plan for follow-up in the office in 2 weeks. Qualifiers: Encounter type: initial encounter Qualified Code(s): S81.011A - Laceration without foreign body, right knee, initial encounter [facility] Medical History Complete miscarriage GDM (gestational diabetes mellitus), class A1 Hypothyroid Hypothyroid LGSIL on Pap smear of cervix Positive high risk HPV Yeast dermatitis Surgical History History of D&C 05/2017 for incomplete Family History Mother Thyroid disorder Father Myocardial infarction Grandfather Myocardial infarction Social History Smoking/Tobacco Use Status: Never Smoking risk assessment performed?: Yes Household members: spouse, children and other Details: Shannon Noguera Number of Children: 2 current occupation: PA in the ER at [employer] Do you feel safe at home: Yes Do you feel safe in your relationship?: Yes Additional Social history: Kwadwo Noguera, 2019 Moise, History History 3 Para Hx # Term Pregnancies 1 Multiple births Hx # Pregnancies Ectopic pregnancies AB induced Hx Number of Living Children AB spontaneous Past Pregnancies Del. Date GA/Weeks # Outcome Route Wgt Sex Labor Lgth Anesthes ia Location Prov Complic Unknown 04/30/18 37 No Successful vaginal 3657.088 g Male 17hrs 10 min lisette onal Claire dian Delivery Date: son: Jose Maria. Rosa Maria Vargas Delivery Date: 04/30/18 No notes to display Exam Narrative Exam Narrative: Keturah is sitting upright in the hospital bed. She is in no acute distress. Alert and oriented x3. Head is normocephalic and atraumatic. Valuation of the right leg shows an obvious laceration to the lateral aspect of the right knee. This laceration is approximately 6 cm and is full-thickness down to the knee capsule and deep fascia. It is roughly in line with the iliotibial band fibers at his anterior edge running obliquely from superolateral to slightly more inferomedial but still lateral to the patellar tendon and the patella. There is no gross debris evaluated in the wound itself. There is no active bleeding. There is a trace amount of clear fluid seen within the wound itself. A gauze was used to dry up the wound after it had been irrigated recently, and there is no other fluid seen leaving the wound. Gentle manipulation of the knee did not express any fluid nor is there any obvious defect to the knee capsule or deep fascia. The skin edges of this laceration do have ecchymosis and some small superficial abrasions associated with it suggesting that the skin was pulled open more so than strictly cut. No obvious bone or muscle involvement. On the anterior aspect of the knee, there is an area of ecchymosis and an abrasion seen. There is some swelling in this area. There is fullness but there is no clear defect of the patellar tendon. She is able to contract her extensor mechanism with some pain but no lag and able to perform a straight leg raise. No significant resistance was added to the leg but she was able to do so against gravity and light resistance without significant weakness but with pain. There was pain with direct palpation of the inferior pole of the patella. No significant pain with patellar mobilization. No pain with palpation of the tibia or down the leg. No significant swelling or bruising seen anywhere else. Results Last Vital Signs Temp 36.5 C 07/08/20 10:03 Pulse 85 07/08/20 10:03 BP 139/69 07/08/20 10:03 Pulse Ox 100 07/08/20 10:03 Labs Result diagrams: 07/08/20 11:55 07/08/20 11:55 Labs: Laboratory Results - last 24 hr 07/08/20 07/08/20 07/08/20 11:55 11:55 12:15 WBC 9.66 RBC 4.65 Hgb 11.9 Hct 38.5 MCV 82.8 MCH 25.6 L MCHC 30.9 L RDW 13.7 Plt Count 257 MPV 10.2 Immature Gran % 0.2 Neutrophils % 77.2 Lymphocytes % 15.3 Monocytes % 6.6 Eosinophils % 0.3 Basophils % 0.4 Nucleated RBC % 0 Absolute Neutrophils 7.45 H Absolute Lymphocytes 1.48 Absolute Monocytes 0.64 Absolute Eosinophils 0.03 Absolute Basophils 0.04 Sodium 137 Potassium 3.7 Chloride 102 Carbon Dioxide 23.5 Anion Gap 11.5 H BUN 10 Creatinine 0.9 Estimated GFR/1.73 m2 >= 60.00 Glucose 93 Calcium 9.1 Total Bilirubin 0.3 AST 27 ALT 28 Alkaline Phosphatase 53 Total Protein 8.2 Albumin 4.5 Lipase 187 COVID-19 Source [facility] Imaging Studies: X-ray of the right knee shows some soft tissue deformity of the lateral aspect the knee. There is a comminuted fracture seen in the very inferior aspect of the patella with minimal displacement. CT scan of the right knee does show some air in the soft tissues outside of the joint capsule. No air is seen within the joint itself. There is some mild comminution of the very inferior most aspect of the patella but without distraction of the fracture fragments. It does involve the majority of the inferior pole but only about 2 to 3 mm and mostly deep rather than anterior. Al l bony fragments are in contact with no more than 1 mm gapping between any fracture fragments. No other fracture seen within the tibia, fibula or femur.
[2020-07-08 12:49] LABS: TSH (W/Ref FT4) 2.16 uIU/mL (0.36-3.74)
--- NOTE | 2020-07-08 12:55 | DI.VRAD_ITS ---
PROCEDURE INFORMATION: Exam: CT Right Lower Extremity Without Contrast, Knee Exam date and time: 07/08/2020 12:40 PM Age: 34 years old Clinical indication: Injury or trauma; Fall; Laceration and swelling (edema); Patella or knee; Right; Foreign body involvement not specified; Patient HX: Open patellar FX. TECHNIQUE: Imaging protocol: CT of the Right lower extremity without contrast was performed. Exam focused on the knee. Radiation optimization: All CT scans at this facility use at least one of these dose optimization techniques: automated exposure control; mA and/or kV adjustment per patient size (includes targeted exams where dose is matched to clinical indication); or iterative reconstruction. COMPARISON: CR XR KNEE RT 4V+ 07/08/2020 11:26 AM FINDINGS: Bones/joints: The tibia and fibula are intact. The femur is intact. Irregularity of the inferior patella that appears chronic. No acute fracture plane. Soft tissues: Anterior soft tissue swelling. Pre patella edema. Anterior soft tissue laceration. Air present within the soft tissues. IMPRESSION: 1. Irregularity of the inferior patella that appears chronic. No acute fracture. 2. Anterior pre patella soft tissue swelling and laceration. Dictated and Authenticated by: Gualberto Pop MD. Ordering:ROBERTO Stroud MD
[2020-07-08 14:56] LABS: COVID-19 PCR Negative (Negative)
== END 2020-07-08 13:40 | disposition home or self-care (01) ==
PROVIDERS: Emergency Provider Physician Assistant; PCP Family Medicine
DX: S81.011A Laceration without foreign body, right knee, initial encounter (principal); S82.044A Nondisplaced comminuted fracture of right patella, initial encounter for closed fracture; W11.XXXA Fall on and from ladder, initial encounter
CPT/HCPCS: 12002; 29505; 80053; 81025; 83690; 87635; 96374; 99253; 99284; 71046; 73564; 73700; 81003; 84443; 85025; 99283; J0690

== ENCOUNTER 2020-07-24 09:26 | Outpatient (CLI) | payer OTHER, SELFPAY ==
--- NOTE | 2020-07-24 10:15 | DI.RAD_ITS ---
EXAM: XR KNEE RT 2V AP,LAT CLINICAL HISTORY: Right patella fracture, S82.009A. TECHNIQUE: 2D digital imaging was performed. COMPARISON: CR,XR XR KNEE RT 4V+ from 07/08/2020 FINDINGS: The fracture site in the inferior pole of the patella appears unchanged. No further displacement. N o additional fractures identified. It is prepatellar swelling is again noted. Mild amount of increa sed joint fluid again noted. IMPRESSION: DATA REPOSITORY: RADIATION DOSE DELIVERED:
== END 2020-07-24 09:46 ==
PROVIDERS: PCP Family Medicine; Visit Provider Physician Assistant
DX: S82.044A Nondisplaced comminuted fracture of right patella, initial encounter for closed fracture (principal)
CPT/HCPCS: 73560

== ENCOUNTER 2020-08-21 14:28 | Outpatient (CLI) | payer OTHER, SELFPAY ==
--- NOTE | 2020-08-21 13:45 | DI.RAD_ITS ---
Exam(s) XR KNEE RT 2V AP,LAT EXAM: XR KNEE RT 2V AP,LAT CLINICAL HISTORY: f/u R inferior pole patella frx. TECHNIQUE: 2D digital imaging was performed. COMPARISON: Prior x-rays 07/24/2020 FINDINGS: Previously described fracture site in the inferior pole of patella is again noted and exhibits very l ittle change. There is a knee joint effusion again noted. This may be slightly increased in size wh en compared to the previous study. Remainder of the knee appears unremarkable. IMPRESSION: DATA REPOSITORY: RADIATION DOSE DELIVERED:
== END 2020-08-21 14:29 | disposition home or self-care (01) ==
LOC: DIORS 14:28
PROVIDERS: PCP Family Medicine; Referring Provider Family Medicine; Visit Provider Student in an Organized Health Care Education/Training Program
DX: S82.044D Nondisplaced comminuted fracture of right patella, subsequent encounter for closed fracture with routine healing (principal); M25.461 Effusion, right knee
CPT/HCPCS: 73560

== ENCOUNTER 2021-02-14 13:29 | Outpatient (REF) | payer OTHER, SELFPAY ==
[2021-02-14 14:33] LABS: HCT 36.4 % (36.0-46.0); HGB 10.3 g/dL (11.2-15.7); MCH 21.7 pg (27.0-33.0); MCHC 28.3 % (32.0-36.0); MCV 76.8 fL (80-95); MPV 10.5 fL (8.0-11.0); Platelet Count 347 10^3/uL (130-400); RBC 4.74 10^6/uL (3.93-5.22); RDW 14.9 % (11.7-14.6); RDW-SD 41.1 fL; WBC 5.29 10^3/uL (4.4-10.8)
[2021-02-14 14:52] LABS: Hemoglobin A1C 5.5 % (<5.7)
[2021-02-14 15:11] LABS: ALT 19 U/L (14-59); AST 16 U/L (15-37); Anion Gap 8.5 mmol/L (3-11); BUN 15 mg/dL (7-18); CO2 27.5 mmol/L (21.0-32.0); CREATININE 0.9 mg/dL (0.55-1.02); Calcium 9.1 mg/dL (8.5-10.1); Calculated LDL 123 mg/dL (<100); Chloride 103 mmol/L (98-107); Cholesterol 205 mg/dL (<200); Glucose 89 mg/dL (74-106); HDL Cholesterol 61 mg/dL (40-60); Potassium 4.3 mmol/L (3.5-5.1); Sodium 139 mmol/L (136-145); Triglyceride 107 mg/dL (<150); Vitamin B12 481 pg/mL (193-986)
[2021-02-14 19:20] LABS: Iron 28 ug/dL (50-170); Total Iron Binding Capacity 401 ug/dL (250-450); Transferrin Sat 7 % (15-50)
[2021-02-14 19:33] LABS: Ferritin 4 ng/mL (8-252)
== END 2021-02-14 13:30 | disposition home or self-care (01) ==
LOC: NCHCN 13:29
PROVIDERS: PCP Family Medicine; Visit Provider Nurse Practitioner Family
DX: G62.9 Polyneuropathy, unspecified (principal); E53.9 Vitamin B deficiency, unspecified; E03.9 Hypothyroidism, unspecified; Z00.00 Encounter for general adult medical examination without abnormal findings; Z86.32 Personal history of gestational diabetes
CPT/HCPCS: 80048; 80061; 85027; 82607; 82728; 83036; 83540; 83550; 84443; 84450; 84460

== ENCOUNTER 2021-06-01 14:56 | Emergency (ER) | payer OTHER, SELFPAY ==
[2021-06-01 15:01] VITALS: BP 138/93; PULSE 77; RESP 18; TEMP 37.1; O2SAT 100
--- NOTE | 2021-06-01 15:15 | DI.MRI_ITS ---
Exam(s) MR BRAIN WO/W EXAM: MR BRAIN WO/W CLINICAL HISTORY: gait change, sensory changes, lower ext weakness. TECHNIQUE: Multiplanar multisequence MRI was performed. COMPARISON: MR MR BRAIN WO from 07/21/2019 FINDINGS: MR examination of the brain was performed according to the usual protocol with additional post contra st coronal and axial T1 weighted imaging and multiplanar MP rage imaging. Ventricular system is normal in appearance. There is no enhancing lesion. There are multiple small periventricular focal areas of abnormal signal seen, left greater than right but bilateral. The largest is an approximately 10 by 7 millimeter in diameter focus of increased si gnal seen T2 weighted and FLAIR imaging adjacent to the occipital horn of the left lateral ventricle. As noted above, no enhancement associated with these lesions. No other focal signal abnormality is seen. The orbital and temporal bone structures appear intact. There is normal flow void in the [id number] vasculature. Diffusion-weighted imaging is normal with no evidence of infarction. Susceptibility weighted imaging is normal with no evidence of intracranial hemorrhage. IMPRESSION: Multiple small focal areas of abnormal signal seen adjacent to the lateral ventricles in white matter as described above. These findings were not present on prior examination of June 2019. No enhance ment associated with these findings. Findings are suspicious for demyelinating disease, please correlate clinically. DATA REPOSITORY:
--- NOTE | 2021-06-01 15:39 | DI.MRI_ITS ---
Exam(s) MR THORACIC SPINE WO/W EXAM: MR THORACIC SPINE WO/W CLINICAL HISTORY: weaknss, paresthesias, gait change, consider MS. TECHNIQUE: Multiplanar multisequence MRI was performed. COMPARISON: MR MR LUMBAR SPINE WO/W from 06/01/2021 FINDINGS: MR examination of thoracic spine was performed according to the usual protocol with additional post contrast multiplanar T1 weighted imaging. No significant bony signal abnormality seen. No central canal spinal stenosis or neural foraminal st enosis. No focal disc herniation identified in thoracic region. There are fusiform areas of abnormal signal seen in the spinal cord, there is an area of high signal on T2 weighted images at the T3-4 level measuring about 2.4 cm in length with a slight associated cor d expansion. This lies predominantly to the left of midline. Additional 12 millimeter longitudinal focus of abnormal signal is noted at the T8-T9 level, to the right of midline. No definite cord expa nsion associated with this finding. In association with the additional areas of abnormal signal seen on scanning of the brain and cervica l spine, the findings are highly suspicious for demyelinating process such as multiple sclerosis. Both cord lesions in the thoracic region show significant enhancement on post contrast imaging, consi stent with acute process. IMPRESSION: Fusiform cord lesions are identified at T3-4 and T8-T9 as described above, suspicious for demyelinati ng process. Enhancement is noted suggesting acute process. Please see above discussion. DATA REPOSITORY:
--- NOTE | 2021-06-01 15:39 | DI.MRI_ITS ---
Exam(s) MR LUMBAR SPINE WO/W EXAM: MR LUMBAR SPINE WO/W CLINICAL HISTORY: weakness, paresthesia, gait change, consider MS. TECHNIQUE: Multiplanar multisequence MRI was performed. COMPARISON: No exams were available for comparison FINDINGS: MR examination of the lumbar spine was performed according to the usual protocol with additional pos t contrast axial and coronal T1 weighted imaging. No significant bony signal abnormality seen. No central canal spinal stenosis. No neural foraminal stenosis. No disc herniation. There are mild changes of facet hypertrophy at L4-5 and L5-S1, presum ably on a degenerative basis. There is a question of a faint area of abnormal signal in the conus at the T12 level, this is most pr ominent on the T2 weighted and STIR sagittal images and may represent demyelinating focus. There is no enhancement identified at this site or elsewhere in the conus. IMPRESSION: Small focus of questionable abnormal T2 signal in the conus medullaris, this is rounded and measures about 6 millimeters in diameter, question demyelinating process. No evidence of enhancement. DATA REPOSITORY:
--- NOTE | 2021-06-01 15:39 | DI.MRI_ITS ---
Exam(s) MR CERVICAL SPINE WO/W EXAM: MR CERVICAL SPINE WO/W CLINICAL HISTORY: weakness,sensory changes, progressive, consider MS. TECHNIQUE: Multiplanar multisequence MRI was performed. COMPARISON: No exams were available for comparison FINDINGS: MR examination of the cervical spine was performed according to the usual protocol with additional pr e and post contrast T1 weighted imaging. There is mild cervical kyphosis. No significant bony signal abnormality seen. Spinal canal is of no rmal dimensions throughout. Spinal cord is also abnormal dimensions throughout. No significant findings at C2-3, there is no evidence of disc herniation, central canal spinal stenos is, or neural foraminal stenosis. At C3-4, there is a slight disc bulge. There is no evidence of disc herniation, central canal spinal stenosis, or neural foraminal stenosis. At C4-5, there is mild disc bulge with a question minimal cysts central disc herniation. No signific ant cord deformity at this level. At C5-6, there is moderate disc bulge with minimal broad-based central disc herniation. There are sm all focal areas of abnormal signal in the spinal cord at this area which are seen as punctate on axia l images and elongated on sagittal images. No significant findings at C6-7 apart from mild disc bulge. No intra cord signal abnormality at this level. No central canal spinal stenosis or neural foraminal stenosis. C7-T1, T1 T2, and T2-T3 levels show no specific abnormality. IMPRESSION: Multilevel disc bulges with minimal disc herniations, no significant cord compression. Small focal areas of elongated abnormal signal at C5-6 level, demyelinating disease is suspected judith od no enhancement associated with these focal areas of abnormal signal or elsewhere in the spinal cor d in the cervical region. DATA REPOSITORY:
[2021-06-01 15:57] LABS: Abs Immature Grans 0.01 10^3/uL (0.0-0.06); Absolute Basophil Count 0.08 10^3/uL (0.0-0.2); Absolute Eosinophil Count 0.07 10^3/uL (0.0-0.7); Absolute Lymphocyte Count 2.58 10^3/uL (1.2-3.4); Absolute Monocyte Count 0.56 10^3/uL (0.1-0.8); Absolute Neutrophil Count 4.59 10^3/uL (1.2-6.7); Eosinophils % 0.9; HCT 40.5 % (36.0-46.0); HGB 12.2 g/dL (11.2-15.7); Immature Grans % 0.1; Lymphocytes % 32.7; MCH 24.6 pg (27.0-33.0); MCHC 30.1 % (32.0-36.0); MCV 81.7 fL (80-95); MPV 10.1 fL (8.0-11.0); Monocytes % 7.1; Neutrophils % 58.2; Nucleated RBC 0 %; Platelet Count 267 10^3/uL (130-400); RBC 4.96 10^6/uL (3.93-5.22); RDW 16.3 % (11.7-14.6); RDW-SD 48.7 fL; WBC 7.89 10^3/uL (4.4-10.8)
[2021-06-01 16:02] VITALS: RESP 18
--- NOTE | 2021-06-01 16:03 | W.ED.GENAD ---
Discharge Plan Disposition Patient Disposition: HOME Condition: Stable Discharge Details Clinical Impression: Demyelinating nervous system disease or syndrome Primary Care Provider: Radha Dowell ED Provider: Jamar Owens Home Meds and New Rx's Prescriptions: New prednisone 50 mg tablet 1,250 mg PO DAILY 7 Days Qty: 175 0RF pantoprazole 40 mg tablet,delayed release (DR/EC) 40 mg PO DAILY 10 Days Qty: 10 0RF ondansetron HCl 4 mg tablet 4 mg PO BID PRN (Reason: nausea and vomiting) 7 Days Qty: 14 0RF No Action ibuprofen 800 mg tablet 800 mg PO TID PRN (Reason: pain) Qty: 30 2RF levothyroxine 125 mcg tablet 112 mcg PO DAILY Qty: 90 3RF naproxen sodium [Aleve] 220 mg Tablet 440 mg PO BID PRN0RF acetaminophen 500 mg Capsule 1,000 mg PO Q6H PRN0RF Discharge Instructions Additional Instructions: Please follow-up with neurology as scheduled early next week, Friday or Friday. Please return to the emergency department for any worsening symptoms. Medical Decision Making 35-year-old female history of hypothyroidism on levothyroxine, presents with intermittent progressive neurologic symptomatology over the past several weeks to months, generalized weakness intermittent in nature, worse in her bilateral lower extremities associated with a change in her gait today and issues with proprioception, sensory paresthesias to thoracic dermatome on the left approximate T4, full strength and sensation cranial nerves intact, does have widened high-stepping gait without definitive ataxia, no external signs of trauma, no respiratory distress, no peripheral edema, no chest pain or infectious symptomatology, of note did have Covid 5 weeks ago, had an episode of optic neuritis after the of her first child; must consider autoimmune conditions such as MS versus myasthenia gravis versus hypothyroidism versus metabolic derangement versus less likely Guillain-Delgado? versus less likely spinal cord trauma infection or malignancy versus must consider intracranial edema or mass although no signs of intracranial pressure such as nausea vomiting or visual changes. Will obtain basic metabolic panel, stat imaging of brain and spine with MRI. We will send thyroid studies, ESR CRP, metabolic panel, cardiac labs. Patient is hemodynamically stable alert and oriented pending result consider home with neurology follow-up versus admission for further evaluation. Dr. Conte of radiology reporting evidence of periventricular white matter lesions on MRI brain, recommended adding contrast study for brain and whole spine to assess for further lesions. High clinical suspicion for MS. Have spoken with Dr. Holbrook of neurology who will follow the patient's course, recommend giving patient the option for hospitalization for steroid infusion or home with oral steroids and follow-up next week in clinic. Will discuss care options with patient when she is done with MRI Resting comfortably no acute distress. Patient given 1 g of methylprednisolone IV. Also given pantoprazole p.o. Patient given the option of remaining inpatient for IV infusion methylprednisolone or going home with oral prednisone. Patient would prefer to go home and follow-up with neurology next week. Given strict return precautions. Family coming to pick her up. HPI General Date/Time Provider Initiated Documentation: 06/01/21 14:58. HPI Narrative: 35-year-old female history of hypothyroidism presents with progressive neurologic symptoms over the past several weeks to months, worsening today as she developed an unsteady gait and difficulty with proprioception, she has also been experiencing dermatomal paresthesias in his thoracic region, has felt progressive intermittent whole body fatigue for some time, no chest pain or shortness of breath; did have unexplained optic neuritis after the of her child and had a previous MRI that was negative. Denies family history of autoimmune disease however patient does suffer from hypothyroidism is on a stable dose of levothyroxine. No change in speech no change in vision has not noticed any ptosis. No exogenous estrogen use. Related Data Home Medications Medication Instructions Recorded Confirmed ibuprofen 800 mg tablet 800 mg PO TID PRN #30 tab 05/02/18 06/01/21 acetaminophen 500 mg capsule 1,000 mg PO Q6H PRN 07/08/20 06/01/21 naproxen sodium 220 mg tablet 440 mg PO BID PRN 07/08/20 06/01/21 (Aleve) levothyroxine 125 mcg tablet 112 mcg PO DAILY #90 tab 10/16/20 06/01/21 ondansetron HCl 4 mg tablet 4 mg PO BID PRN 7 Days #14 tab 06/01/21 pantoprazole 40 mg tablet,delayed 40 mg PO DAILY 10 Days #10 tab 06/01/21 release prednisone 50 mg tablet 1,250 mg PO DAILY 7 Days #175 tab 06/01/21 Previous Rx's Medication Instructions Recorded ibuprofen 800 mg tablet 800 mg PO TID PRN #30 tab 05/02/18 levothyroxine 125 mcg tablet 112 mcg PO DAILY #90 tab 10/16/20 ondansetron HCl 4 mg tablet 4 mg PO BID PRN 7 Days #14 tab 06/01/21 pantoprazole 40 mg tablet,delayed 40 mg PO DAILY 10 Days #10 tab 06/01/21 release prednisone 50 mg tablet 1,250 mg PO DAILY 7 Days #175 tab 06/01/21 Allergies Allergy/AdvReac Type Severity Reaction Status Date / Time latex Allergy Intermediate Hives Verified 06/01/21 15:05 General Stated Complaint: [facility] ANDREW: 3 Review of Systems Narrative: Review of Systems Constitutional: negative Eyes: negative ENT: negative Cardiovascular: negative Respiratory: negative Gastrointestinal: negative : negative Musculoskeletal: negative Skin: negative Neurologic: Lower extremity weakness, abnormal gait, paresthesia in thoracic region Psych: negative PFSH All Active Problems (Updated 06/01/21 @ 21:58 by Jamar Owens MD) Demyelinating nervous system disease or syndrome (Acute) Laceration of knee, right (Acute 07/08/20) Closed comminuted fracture of right patella (Acute 07/08/20) Hypothyroid (Chronic) LGSIL on Pap smear of cervix (Acute) Positive high risk HPV Yeast dermatitis (Acute) Medical History Complete miscarriage GDM (gestational diabetes mellitus), class A1 Hypothyroid Hypothyroid LGSIL on Pap smear of cervix Positive high risk HPV Yeast dermatitis Surgical History History of D&C 05/2017 for incomplete Family History Mother Thyroid disorder Father Myocardial infarction Grandfather Myocardial infarction Social History Smoking/Tobacco Use Status: Never Smoking risk assessment performed?: Yes Drug use: Never Substance use type: does not use Household members: spouse, children and other Details: Shannon Noguera Number of Children: 2 current occupation: PA in the ER at [employer] Do you feel safe at home: Yes Do you feel safe in your relationship?: Yes Additional Social history: Mary Joya, History History 3 Para Hx # Term Pregnancies 1 Multiple births Hx # Pregnancies Ectopic pregnancies AB induced Hx Number of Living Children AB spontaneous Past Pregnancies Del. Date GA/Weeks # Outcome Route Wgt Sex Labor Lgth Anesthesia Location Prov Complic Unknown 04/30/18 37 No Successful vaginal 3657.088 g Male 17hrs 10 min [facility] Delivery Date: Last Updated by: Rosa Maria Vargas M.D. son: Jose Maria. Exam Narrative Exam Narrative: Physical Examination General: alert, awake, cooperative, resting comfortably, no acute distress HEENT: normocephalic, atraumatic; PERRL, EOM intact, conjunctiva normal; no nasal discharge; moist mucous membranes, oral and pharyngeal mucosa normal, tolerating secretions Neck: supple, trachea midline; full ROM Chest: normal to inspection Respiratory: normal respiratory effort, speaking in full sentences, clear to auscultation, no wheezing, rales or rhonchi Cardiac: regular rate, regular rhythm, S1S2 intact, no murmurs rubs or gallops GI: abdomen soft, non-tender, non-distended; no palpable mass or hepatosplenomegaly Skin: no lesions, rashes or trauma appreciated Neuro: AAOx3, normal speech, moving all extremities; 5-5 strength upper and lower extremities, cranial nerves II through XII intact, no truncal ataxia, no definitive ataxia while walking however does have high-stepping slightly widened gait; endorses paresthesias to left thoracic dermatome below level of breast Extremities: No peripheral edema Psych: Appropriate mood and affect Course Vital Signs Vital signs: Vital Signs Temperature 37.1 C 06/01/21 15:01 Pulse 77 06/01/21 15:01 Respiratory Rate 18 06/01/21 15:01 Blood Pressure 138/93 H 06/01/21 15:01 Pulse Oximetry 100 06/01/21 15:01 Temperature 37.1 C 06/01/21 15:01 Temperature Source Temporal Artery Scan 06/01/21 15:01 Pulse 77 06/01/21 15:01 Respiratory Rate 18 06/01/21 15:01 Blood Pressure 138/93 H 06/01/21 15:01 Blood Pressure Position Sitting 06/01/21 15:01 Pulse Oximetry 100 06/01/21 15:01 Oxygen Delivery Method Room Air 06/01/21 15:01 Oxygen Flow Rate 0 06/01/21 15:01 Lab/Test Results Lab/Test Results: Laboratory Tests Range/Units 06/01/21 15:35 WBC (4.4-10.8) 10^3/uL 7.89 RBC (3.93-5.22) 10^6/uL 4.96 Hgb (11.2-15.7) g/dL 12.2 Hct (36.0-46.0) % 40.5 MCV (80-95) fL 81.7 MCH (27.0-33.0) pg 24.6 L MCHC (32.0-36.0) % 30.1 L RDW (11.7-14.6) % 16.3 H Plt Count (130-400) 10^3/uL 267 MPV (8.0-11.0) fL 10.1 Immature Gran % 0.1 Neutrophils % 58.2 Lymphocytes % 32.7 Monocytes % 7.1 Eosinophils % 0.9 Basophils % 1.0 Nucleated RBC % % 0 Absolute Neutrophils (1.2-6.7) 10^3/uL 4.59 Absolute Lymphocytes (1.2-3.4) 10^3/uL 2.58 Absolute Monocytes (0.1-0.8) 10^3/uL 0.56 Absolute Eosinophils (0.0-0.7) 10^3/uL 0.07 Absolute Basophils (0.0-0.2) 10^3/uL 0.08 POC Urine Test Start: 06/01/21 15:09 Freq: Status: Complete Protocol: Document 06/01/21 15:21 PS (Rec: 06/01/21 15:21 PS [id number]) Test(Urine)-POC POC- Test(urine) Negative POC- Test(urine) Negative
[2021-06-01 16:04] LABS: Bilirubin Negative (Negative); Blood Negative (Negative); Clarity Clear (Clear); Glucose Negative (Negative); Ketones Trace mg/dL (Negative); Leukocyte Esterase Negative (Negative); Nitrite Negative (Negative); Urobilinogen 0.2 EU/dL (Up TO 0.2)
[2021-06-01 16:26] LABS: ALT 12 U/L (14-59); AST 14 U/L (15-37); Albumin 4.4 g/dL (3.4-5.0); Alkaline Phosphatase 57 U/L (46-116); Anion Gap 10.6 mmol/L (3-11); BUN 9 mg/dL (7-18); Bilirubin, Total 0.4 mg/dL (0.2-1.0); CO2 25.4 mmol/L (21.0-32.0); CREATININE 0.9 mg/dL (0.55-1.02); Calcium 9.1 mg/dL (8.5-10.1); Chloride 104 mmol/L (98-107); Glucose 90 mg/dL (74-106); PHOSPHORUS 3.9 mg/dL (2.6-4.7); Potassium 3.5 mmol/L (3.5-5.1); Sodium 140 mmol/L (136-145); TSH (W/Ref FT4) 5.11 uIU/mL (0.36-3.74); Total Protein 8.2 g/dL (6.4-8.2)
[2021-06-01 16:28] LABS: Troponin I < 50 ng/L (<or=60)
[2021-06-01 16:37] LABS: D-Dimer 112 ng/mlFEU (<500)
[2021-06-01 16:46] LABS: FREE T4 1.14 ng/dL (0.76-1.46)
[2021-06-01] MEDS: Gadoterate meglumine 20 ML VIAL 10 ML IVP (18:08)
--- NOTE | 2021-06-01 19:15 | DI.VRAD_ITS ---
PROCEDURE INFORMATION: Exam: MR Lumbar Spine Without and With Contrast. Exam date and time: 06/01/2021 6:06 PM Age: 35 years old Clinical indication: Other: Neurological symptoms difficulty walking, leg weakness; Additional info: ? Ms TECHNIQUE: Imaging protocol: Multiplanar magnetic resonance images of the lumbar spine without and with contrast. Contrast material: DOTAREM; Contrast volume: 16 ml; Contrast route: INTRAVENOUS (IV); COMPARISON: MR THORACIC SPINE WO/W 06/01/2021 5:17 PM FINDINGS: Vertebrae: There is preservation of vertebral body height throughout the lumbar spine and alignment is normal with no lumbar fractures or significant subluxation detected. No significant marrow replacing lesions are seen involving the vertebral bodies or posterior elements of the lumbar spine. Spinal cord: The distal cord and conus are normal in configuration and signal characteristics and no intramedullary signal abnormalities or abnormal distal cord or other intraspinal enhancement is seen at lumbar levels. Discs/Spinal canal/Neural foramina: No significant posterior disc bulge or protrusion or seen at lumbar levels and the central canal and neural foramina are adequate throughout the lumbar spine. Soft tissues: Unremarkable. IMPRESSION: Unremarkable enhanced MRI of the lumbar spine as above. Dictated and Authenticated by: Ramin Foote MD. Ordering:SUSANA Roldan MD
--- NOTE | 2021-06-01 19:28 | DI.VRAD_ITS ---
PROCEDURE INFORMATION: Exam: MR Thoracic Spine Without and With Contrast Exam date and time: 06/01/2021 6:06 PM Age: 35 years old Clinical indication: Other: Neurological changes, upper and lower extremity weakness; Additional info: ? Ms TECHNIQUE: Imaging protocol: Multiplanar magnetic resonance images of the thoracic spine without and with contrast. Contrast material: DOTAREM; Contrast volume: 16 ml; Contrast route: INTRAVENOUS (IV); COMPARISON: MR CERVICAL SPINE WO/W 06/01/2021 4:21 PM FINDINGS: Vertebrae: There is preservation of vertebral body height throughout thoracic levels and no fractures or significant subluxations are detected. No significant marrow replacing lesions are seen involving the vertebral bodies or posterior elements of the thoracic spine. Spinal cord: A 2.4 cm fusiform intramedullary STIR and T2 hyperintensity associated with mild cord expansion involves the left lateral cord substance at the T3-4 level (see image 8 on series [id number] and series [id number]) and postcontrast images demonstrate focal intramedullary enhancement at this level (see images 21-23 from series [id number]). A smaller 12 mm intramedullary STIR and T2 hyperintensity involves the right lateral column of the cord at the T8-9 level and postcontrast images also demonstrate focal intramedullary enhancement within the cord to the right of midline at this level (see images 6 and 7 from series [id number]). The thoracic cord is is normal in configuration and signal characteristics throughout the remainder of the thoracic spine with no other intramedullary signal abnormalities or abnormal thoracic cord enhancement detected. Discs/Spinal canal/Neural foramina: Intervertebral discs are grossly intact throughout the thoracic spine with no significant posterior disc bulges or protrusions identified. There is no significant canal stenosis or cord compression seen at any thoracic level. Soft tissues: Unremarkable. IMPRESSION: 1. A fusiform intramedullary STIR and T2 hyperintensity is seen associated with mild cord expansion and focal enhancement at the T3-4 level with a smaller intramedullary STIR and T2 hyperintensity with associated enhancement also seen involving the thoracic cord at T8-9 as detailed above. Imaging findings are suggestive of demyelinating disease and no other cord lesions are detected at thoracic levels. 2. Vertebral bodies and posterior elements are intact throughout the thoracic spine and no significant disc bulges/protrusions, canal stenosis or cord compression is seen at thoracic levels. Dictated and Authenticated by: Ramin Foote MD. Ordering:SUSANA Roldan MD
[2021-06-01 19:32] LABS: ESR 13 mm/hr (0-20)
--- NOTE | 2021-06-01 19:40 | DI.VRAD_ITS ---
PROCEDURE INFORMATION: Exam: MR Cervical Spine Without and With Contrast Exam date and time: 06/01/2021 6:04 PM Age: 35 years old Clinical indication: Other: Neurological changes, arm and leg weakness; Additional info: ? Ms TECHNIQUE: Imaging protocol: Multiplanar magnetic resonance images of the cervical spine without and with contrast. Contrast material: DOTAREM; Contrast volume: 16 ml; Contrast route: INTRAVENOUS (IV); COMPARISON: MR BRAIN WO/W 06/01/2021 3:57 PM FINDINGS: Vertebrae: Craniocervical and atlantoaxial articulations are preserved and the odontoid process is intact. There are minimal anterolistheses of C2 upon C3, C3 upon C4 and C4 upon C5 and there is preservation of vertebral body height throughout the cervical spine with no fractures or other significant subluxations detected. No significant marrow replacing lesions are seen involving the vertebral bodies or posterior elements at cervical levels. Spinal cord: Posterior left-sided disc bulging at C4-C5, posterior central disc bulging at C5-C6 and right paracentral disc bulging at C6-C7 all result in mild ventral cord flattening without severe cord compression mild canal stenosis also seen at the C4-C5 level. Bilateral punctate intramedullary hyperintensities seen within the substance of the cord at the C5-C6 level on T2 weighted images (see images 16-19, series [id number]) may reflect subtle myelomalacia/gliosis with no intramedullary enhancement identified at this level or involving the remainder of the cervical cord. C2-C3: No significant disc disease. No significant spinal stenosis. C3-C4: No significant disc disease. No significant spinal stenosis. C4-C5: Posterior left paracentral disc bulging at this level result in mild canal stenosis (AP canal dimension approximately 9 mm) and mild left-sided ventral cord flattening without severe cord compression. C5-C6: Posterior central disc bulging at this level result in mild ventral cord flattening without canal stenosis or severe cord compression. C6-C7: Posterior right paracentral disc bulging produces mild right-sided ventral cord flattening without canal stenosis or severe cord compression. C7-T1: No significant disc disease. No significant spinal stenosis. Soft tissues: Unremarkable. IMPRESSION: 1. Posterior left-sided disc bulging at C4-C5, posterior central disc bulging at C5-C6 and right paracentral disc bulging at C6-C7 all result in mild ventral cord flattening without severe cord compression mild canal stenosis also seen at the C4-C5 level. 2. Bilateral punctate intramedullary hyperintensities seen within the substance of the cord at the C5-C6 level on T2 weighted images (see images 16-19, series [id number]) may reflect subtle myelomalacia/gliosis with no intramedullary enhancement identified at this level or involving the remainder of the cervical cord. No other intramedullary signal abnormalities are seen at remaining cervical levels. Dictated and Authenticated by: Ramin Foote MD. Ordering:SUSANA Roldan MD
[2021-06-01 19:44] LABS: C-Reactive Protein < 0.05 mg/dL (0.0-0.3)
--- NOTE | 2021-06-01 20:28 | DI.VRAD_ITS ---
PROCEDURE INFORMATION: Exam: MR Head Without and With Contrast Exam date and time: 06/01/2021 6:01 PM Age: 35 years old Clinical indication: Walking, difficulty and weakness, extremity; Bilateral; Additional info: ? Ms TECHNIQUE: Imaging protocol: MR of the head without and with intravenous contrast. Contrast material: DOTAREM; Contrast volume: 17 ml; Contrast route: INTRAVENOUS (IV); COMPARISON: MR BRAIN WO 07/21/2019 9:10 AM FINDINGS: Brain: Cerebral sulci show bilateral symmetry with no supratentorial mass or mass effect detected. A discrete 8 mm ovoid FLAIR and T2 hyperintensity is seen involving periventricular white matter along the lateral margin of the trigone of the left lateral ventricle (see image 12 on series 7001 and series 19855). A few smaller FLAIR and T2 hyperintensities are also seen bilaterally involving periventricular white matter along the posterior margins of the posterior bodies of both lateral ventricles in the region of the forceps major of the corpus callosum (see images 14-16 from series 7001 and series 50073). A few tiny FLAIR and T2 hyperintensities also involve periventricular white matter along the anterior tips of the frontal horns of both lateral ventricles and no abnormal enhancement is detected in association with these periventricular signal abnormalities. Brainstem and cerebellum are unremarkable and no additional foci of abnormal increased or decreased signal intensity are seen within the remainder of the brain parenchyma. No abnormal intracranial enhancement is detected. Cerebral ventricles: Ventricles are normal in size and configuration with no evidence of midline shift or hydrocephalus. Bones/joints: Bony calvarium and skull base appear intact with no acute osseous lesions detected. Paranasal sinuses: Clear as visualized. Mastoid air cells: Clear as visualized. Orbital cavity: Unremarkable. Soft tissues: Unremarkable. IMPRESSION: A few nonenhancing FLAIR and T2 hyperintensities are seen involving the periventricular white matter throughout both cerebral hemispheres as detailed above, and imaging findings are consistent with demyelinating disease in this patient with known enhancing spinal cord lesions. Dictated and Authenticated by: Ramin Foote MD. Ordering:SUSANA Roldan MD
[2021-06-01] MEDS: Pantoprazole 40 MG TABCR PO (20:35)
[2021-06-01] MEDS: Water,Injection,Sterile 10 ML VIAL (20:40)
[2021-06-01] MEDS: Normal Saline 250 ML 500 ML (20:49)
[2021-06-01] MEDS: methylPREDNISolone SUCC 125 MG VIAL 1000 MG IVP (20:49)
[2021-06-01 21:20] VITALS: BP 138/98; PULSE 71; RESP 16; O2SAT 99
[2021-06-04 11:13] LABS: Lyme Ab w Rflx to Lyme Confirm Negative (Negative)
[2021-06-05 21:01] LABS: Anaplasma phagocytophilum Negative (Negative); B. miyamotoi PCR Negative (Negative); Babesia divergens/MO-1 Negative (Negative); Babesia duncani Negative (Negative); Babesia microti Negative (Negative); Ehrlichia chaffeensis Negative (Negative); Ehrlichia ewingii/canis Negative (Negative); Ehrlichia muris eauclairensis Negative (Negative)
== END 2021-06-01 22:20 | disposition home or self-care (01) ==
PROVIDERS: Emergency Provider Emergency Medicine; PCP Family Medicine
DX: G37.8 Other specified demyelinating diseases of central nervous system (principal); E03.9 Hypothyroidism, unspecified; R53.1 Weakness; R20.2 Paresthesia of skin; R26.89 Other abnormalities of gait and mobility
CPT/HCPCS: 36415; 70553; 72158; 80053; 81025; 85652; 87798; 96374; 99285; 72156; 72157; 81003; 83735; 84100; 84439; 84443; 84484; 85025; 85379; 86140; 86618; 99284; J2930

== ENCOUNTER 2024-08-29 09:50 | Emergency (ER) | payer BC, OTHER, SELFPAY ==
[2024-08-29] VITALS (13 sets, daily range): BP systolic 113–163; BP diastolic 66–105; PULSE 82–122; RESP 18–25; O2SAT 98–100
--- NOTE | 2024-08-29 09:45 | RT.EKG_ITS ---
APPROVED REPORT Exam: Resting ECG Reason for Exam: CP + SOB Patient Location: E HR:92 bpm ECG Measurements Heart Rate 92 AXIS ND 150 P 52 QRSd 80 QRS 16 QT 373 T 27 QTc 462 Conclusion Sinus rhythm, rate 92 No interval abnormalities No STEMI No priors available for comparison
--- NOTE | 2024-08-29 10:00 | DI.RAD_ITS ---
Exam(s) XR CHEST 2V PA LATERAL EXAM: XR CHEST 2V PA LATERAL CLINICAL HISTORY: Cough, R. sided CP. TECHNIQUE: 2D digital imaging was performed. COMPARISON: CR,XR XR CHEST 2V PA LATERAL from 07/08/2020 FINDINGS: 2 views: Heart size is normal. The mediastinum is not widened. Left lung is clear but there is now a significant area of infiltrate in the right hilar-parahilar reg ion anterior segment right upper lobe extending from the hilum out to the anterior pleural surface. No obvious pleural effusions. No fractures nor obvious bone lesions. IMPRESSION: Significant right upper lobe infiltrate. Probably pneumonia but recommend radiographic follow-up to resolution resolution. There presently no obvious pleural effusions. DATA REPOSITORY: RADIATION DOSE DELIVERED:
--- NOTE | 2024-08-29 10:30 | ED.GENADUL_ITS ---
Discharge Plan Disposition Patient Disposition: Home Condition: Stable Discharge Details Clinical Impression: Right upper lobe pneumonia Primary Care Provider: Radha Dowell ED Provider: Marialuisa Niño Home Meds and New Rx's Prescriptions: New azithromycin 250 mg tablet 250 mg PO DAILY 4 Days Qty: 4 0RF Rx Instructions: start on day 2 of therapy (08/30/2024) amoxicillin 500 mg capsule 1,000 mg PO TID 5 Days Qty: 30 0RF No Action ibuprofen 800 mg tablet 800 mg PO TID PRN (Reason: pain) Qty: 30 2RF levothyroxine 125 mcg tablet 112 mcg PO DAILY Qty: 90 3RF ondansetron 4 mg tablet,disintegrating 4 mg PO Q8H PRN (Reason: nausea and vomiting) Qty: 10 0RF armodafinil [Nuvigil] 200 mg tablet 200 mg PO ONCE ferrous sulfate [Iron (ferrous sulfate)] 1 tab PO DAILY naproxen sodium [Aleve] 220 mg Tablet 440 mg PO BID PRN acetaminophen 500 mg Capsule 1,000 mg PO Q6H PRN Discharge Instructions Instructions: Pneumonia, Adult (DC) Additional Instructions: You were seen in the emergency department today for evaluation of right-sided chest pain, cough, and low-grade fever and were found to have a right sided lobar pneumonia. In our department he had a full physical examination performed, and had laboratory studies that were notable for anemia to 8.5, had a negative cardiac enzyme, and reassuring electrolytes, kidney and liver function. Your TSH is 3.42 today, your D-dimer was slightly elevated but below the cutoff for pulmonary embolism in the setting of your active infection. I have provided you with a prescription for amoxicillin and azithromycin to be taken for the next 5 days. Please take all of this antibiotic until it is gone, even if you start to feel better. If you have not felt significant improvement over the next 2 to 3 days, please reach out to your primary care provider as your course of antibiotics may need to be extended. You can return to the emergency department for worsening fevers or chills, shortness of breath, chest pain, or any other symptoms that cause you concern. Thank you for allowing us to be part of your care. HPI General Mode of arrival: ambulatory . Date/Time Provider Initiated Documentation: 08/29/24 09:55 . Limitations to Documentation: no limitations . Information obtained by: patient and old records reviewed . HPI Narrative: This is a 38-year-old female patient with a past medical history significant for MS, hypothyroidism, presenting for evaluation of acute on chronic worsening of her shortness of breath, right-sided chest pain, and cough. She for started having the symptoms in March, with some rhinorrhea and nasal congestion, productive cough. She reports that she has had numerous workups for this condition, and has undergone treatment for pneumonia, to include doxycycline, Augmentin, and azithromycin. She had another course of Augmentin for sinusitis, but states that her symptoms have persisted. For the last week she has felt that her work of breathing and her chest pain has increased, and she notes significant dyspnea with exertion. She has had a low-grade fever for the last 3 days. No one else in her home is sick with similar symptoms, she has no personal history of respiratory disease such as asthma, no history of nicotine use. She did have a recent trip to [place], but has not had calf swelling or pain. Related Data Home Medications ?Medication ?Instructions ?Recorded ?Confirmed ibuprofen 800 mg tablet 800 mg PO TID PRN pain #30 tabs 05/02/18 08/29/24 acetaminophen 500 mg capsule 1,000 mg PO Q6H PRN 07/08/20 08/29/24 naproxen sodium 220 mg tablet 440 mg PO BID PRN 07/08/20 08/29/24 (Aleve) levothyroxine 125 mcg tablet 112 mcg (0.896 x 125 mcg) PO DAILY 10/16/20 08/29/24 #90 tabs ondansetron 4 mg disintegrating 4 mg PO Q8H PRN nausea and 06/02/21 08/29/24 tablet vomiting #10 tabs amoxicillin 500 mg capsule 1,000 mg (2 x 500 mg) PO TID 5 08/29/24 days #30 caps armodafinil 200 mg tablet (Nuvigil) 200 mg PO ONCE 08/29/24 08/29/24 azithromycin 250 mg tablet 250 mg PO DAILY 4 days #4 tabs 08/29/24 ferrous sulfate 1 tab PO DAILY 08/29/24 08/29/24 Previous Rx's ?Medication ?Instructions ?Recorded ibuprofen 800 mg tablet 800 mg PO TID PRN pain #30 tabs 05/02/18 levothyroxine 125 mcg tablet 112 mcg (0.896 x 125 mcg) PO DAILY 10/16/20 #90 tabs ondansetron 4 mg disintegrating 4 mg PO Q8H PRN nausea and 06/02/21 tablet vomiting #10 tabs amoxicillin 500 mg capsule 1,000 mg (2 x 500 mg) PO TID 5 08/29/24 days #30 caps azithromycin 250 mg tablet 250 mg PO DAILY 4 days #4 tabs 08/29/24 Allergies Allergy/AdvReac Type Severity Reaction Status Date / Time latex Allergy Intermediate Hives Verified 08/29/24 09:58 General Stated Complaint: SOB ANDREW: 3 Exam Narrative Exam Narrative: Gen: Awake and alert, in no apparent distress HEENT: Non-icteric sclera Neck: Supple Lungs: Mild respiratory distress with some tachypnea, lung sounds clear though a frequent junky sounding cough is appreciated during this provider's examination. No wheezing, rhonchi, rales CV: Appears well perfused, heart with regular rate and rhythm at the time of this provider's examination, no murmurs auscultated Abdomen: Non-distended MSK: Moves 4 extremities without apparent limitation in ROM, no unilateral calf swelling or tenderness, no peripheral edema Skin: Visualized skin without rashes, cyanosis. Neuro: Normal Gait, no obvious focal deficits or facial asymmetry. Speaks in full, clear sentences. Psych: Appropriate for situation. Course Vital Signs Vital signs: Vital Signs Pulse 102 H 08/29/24 09:53 Respiratory Rate 22 08/29/24 09:53 Blood Pressure 163/105 H 08/29/24 09:53 Pulse Oximetry 100 08/29/24 09:53 Temperature Source Oral 08/29/24 09:53 Pulse 92 H 08/29/24 10:20 Pulse 91 H 08/29/24 10:20 Respiratory Rate 19 08/29/24 10:20 Blood Pressure 113/86 08/29/24 10:09 Blood Pressure Mean 90 08/29/24 10:01 Blood Pressure Position Sitting 08/29/24 09:53 Pulse Oximetry 100 08/29/24 10:20 Oxygen Delivery Method Room Air 08/29/24 10:09 Oxygen Flow Rate 0 08/29/24 09:53 Pain Level 4 08/29/24 10:09 Medical Decision Making This is a 38-year-old female patient presenting for evaluation of right-sided chest pain, cough, and low-grade fever. My differential includes but is not limited to infectious etiologies including pneumonia, bronchitis, viral upper respiratory infection (though the patient's symptoms have been present for long enough that she would not be a candidate for Paxlovid or Tamiflu if positive for COVID or influenza). I considered pulmonary embolism in this patient with recent air travel and pleuritic chest pain. The patient is young and without cardiac risk factors, though ACS was considered. Considered pneumothorax, pleural effusion, pulmonary edema. Considered pericarditis/myocarditis, costochondritis, pleurisy. Reassuringly, the patient is oxygenating appropriately on room air, and is afebrile now. She is already taken [id number] medications for pain. We obtained an EKG, which I reviewed, showing a normal sinus rhythm without evidence of acute ischemia, interval abnormality, or ectopy. No priors immediately available for comparison. We will obtain laboratory studies to include CBC, CMP, magnesium, troponin, D- dimer, and TSH. I will obtain a chest x-ray. - I reviewed the patient's laboratory studies, which does show an anemia to 8.5, patient reports that her most recent was around 9, and she has a follow-up with her PCP for this condition. She has no external evidence of active bleeding, and does not meet criteria for acute transfusion at this time. No thrombocytopenia or leukocytosis, chemistry panel with a borderline low potassium at 3.4, but no other electrolyte derangements, kidney dysfunction, or evidence of liver disease. Troponin is less than 4, and in this patient with no cardiac risk factors, and a more compelling pulmonary source of her chest pain I do not see an indication to proceed with delta rechecks. TSH within normal limits at 3.4. D-dimer is 632, which is below the cutoff of 1000 determined by years criteria. I reviewed the patient's x-ray, which shows a new right upper lobe pneumonia, when compared to her most recent x-ray at [facility] in May of this year. Given the patient's frequent pneumonias this year I think that is reasonable to double cover her with oral antibiotics, and she was started on a course of amoxicillin and azithromycin, first doses provided here in the emergency department. At this time, the patient has had a full medical evaluation and is safe for discharge to home. They are hemodynamically stable, ambulatory, and tolerating PO. They are understanding of the follow-up plan and return precautions. They left our facility without incident. Marialuisa Niño MD Quality:SDOH Health Related Social Needs: No Data to Display PFSH All Active Problems (Updated 08/29/24 @ 11:24 by Marialuisa Niño MD) Right upper lobe pneumonia (Acute) Multiple sclerosis (Chronic) Laceration of knee, right (Acute 07/08/20) Closed comminuted fracture of right patella (Acute 07/08/20) Hypothyroid (Chronic) LGSIL on Pap smear of cervix (Acute) Positive high risk HPV Yeast dermatitis (Acute) Medical History Complete miscarriage GDM (gestational diabetes mellitus), class A1 Hyperlipidemia Vascular thoracic outlet syndrome Surgical History History of D&C 05/2017 for incomplete Family History Mother Thyroid disorder Father Myocardial infarction Grandfather Myocardial infarction Social History Smoking/Tobacco Use Status: Never Smoking risk assessment performed?: Yes Alcohol Intake: current Alcohol Intake frequency: holidays/special occasions only Alcohol type: beer Drug use: Never Substance use type: does not use Household members: spouse, children and other Details: Shannon Noguera Number of Children: 2 current occupation: PA in the ER at [employer] Do you feel safe at home: Yes Do you feel safe in your relationship?: Yes Additional Social history: Kwadwo Noguera, 2019 [place], History History 3 Para Hx # Term Pregnancies 1 Multiple births Hx # Pregnancies Ectopic pregnancies AB induced Hx Number of Living Children AB spontaneous Past Pregnancies Del. Date GA/Weeks # Preg Succ Route Wgt Sex Labor Lgth Anesth esia Location Prov Complic Unknown 04/30/18 37 No vaginal 3657.088 g Male 17hrs 10 min [facility] Delivery Date: Last Updated by: Rosa Maria Vargas M.D. son: Jose Maria.
[2024-08-29 10:32] LABS: Abs Immature Grans 0.03 10^3/uL (0.0-0.06); Absolute Basophil Count 0.09 10^3/uL (0.0-0.2); Absolute Eosinophil Count 0.11 10^3/uL (0.0-0.7); Absolute Lymphocyte Count 1.74 10^3/uL (1.2-3.4); Absolute Monocyte Count 0.92 10^3/uL (0.1-0.8); Absolute Neutrophil Count 6.15 10^3/uL (1.2-6.7); Eosinophils % 1.2 %; HCT 29.7 % (36.0-46.0); HGB 8.5 g/dL (11.2-15.7); Immature Grans % 0.3 %; Lymphocytes % 19.2 %; MCH 20.5 pg (27.0-33.0); MCHC 28.6 % (32.0-36.0); MCV 72 fL (80-95); MPV 10.1 fL (8.0-11.0); Monocytes % 10.2 %; Neutrophils % 68.1 %; RBC 4.15 10^6/uL (3.93-5.22); RDW 17.7 % (11.7-14.6); RDW-SD 45.6 fL; WBC 9.04 10^3/uL (4.4-10.8)
[2024-08-29 10:58] LABS: Platelet Count 316 10^3/uL (130-400)
[2024-08-29 10:59] LABS: Diff Comment Diff Reviewed; Hypochromasia 2+; Microcytosis 2+; Poikilocytes 1+
[2024-08-29 11:01] LABS: ALT 20 U/L (14-59); AST 15 U/L (15-37); Albumin 3.8 g/dL (3.4-5.0); Alkaline Phosphatase 100 U/L (46-116); Anion Gap 11.4 mmol/L (3-11); BUN 8 mg/dL (7-18); Bilirubin, Total 0.4 mg/dL (0.2-1.0); CO2 25.6 mmol/L (21.0-32.0); CREATININE 0.8 mg/dL (0.55-1.02); Calcium 9.3 mg/dL (8.5-10.1); Chloride 102 mmol/L (98-107); D-Dimer 632 ng/mlFEU (<500); Estimated GFR 96.66 (mL/min/1.73m2); Glucose 100 mg/dL (74-106); Magnesium 1.9 mg/dL (1.8-2.4); Potassium 3.4 mmol/L (3.5-5.1); Sodium 139 mmol/L (136-145); TSH (W/Ref FT4) 3.42 uIU/mL (0.36-3.74); Total Protein 7.5 g/dL (6.4-8.2)
[2024-08-29 11:02] LABS: Troponin I < 4 ng/L (<or=51)
--- NOTE | 2024-08-29 11:06 | DI.VRAD_ITS ---
PROCEDURE INFORMATION: Exam: XR Chest Exam date and time: 08/29/2024 10:40 AM Age: 38 years old Clinical indication: Other: Cough, R. Sided cp TECHNIQUE: Imaging protocol: Radiologic exam of the chest. Views: 2 views. COMPARISON: CR XR CHEST 2V PA LATERAL 07/08/2020 11:23 AM FINDINGS: Lungs: There is right upper lobe airspace opacity. Pleural spaces: Unremarkable. No pleural effusion. No pneumothorax. Heart/Mediastinum: Unremarkable. No cardiomegaly. Bones/joints: Unremarkable. IMPRESSION: Right upper lobe pneumonia. Follow-up to radiographic resolution recommended. Dictated and Authenticated by: Odalis Rojo MD. Orderin [facility] Virgil Elam MD
[2024-08-29] MEDS: Azithromycin 250 MG TAB 500 MG PO (11:42)
[2024-08-29] MEDS: Amoxicillin 500 MG CAP 1000 MG PO (11:42)
== END 2024-08-29 11:47 | disposition home or self-care (01) ==
PROVIDERS: Emergency Provider Emergency Medicine; PCP Family Medicine
DX: J18.9 Pneumonia, unspecified organism (principal); R05.9 Cough, unspecified
CPT/HCPCS: 99284; 99285; 36415; 80053; 93005; 71046; 83735; 84443; 84484; 85025; 85379; 93010